=== PATIENT | male | born 1975 | race Caucasian/White ===

== ENCOUNTER 2017-05-11 23:49 | Emergency (ER) | payer SELFPAY ==
[~2017-05-11] VITALS: Ht 180.3 cm; Wt 75.3 kg
[~2017-05-11 23:49] MED LIST: IBUPROFEN800 MG PO; NAPROXEN500 MG PO; OMEPRAZOLE20 MG PO; PENICILLIN V P500 MG PO; SERTRALINE HCL100 MG PO; TRAMADOL HCL50 MG PO; TRAZODONE HCL50 MG PO; ULTRAM50 MG PO
[2017-05-13] MEDS ORDERED: ZOFRAN ODT4 MG PO (08:31)
== END 2017-05-12 00:30 | disposition left against medical advice (07) ==
LOC: ED 23:49
DX: Z53.21 Procedure and treatment not carried out due to patient leaving prior to being seen by health care provider (principal)

== ENCOUNTER 2017-05-13 08:06 | Emergency (ER) | payer SELFPAY ==
[~2017-05-13] VITALS: Ht 180.3 cm; Wt 75.3 kg
[2017-05-13] MEDS ORDERED: ZOFRAN ODT4 MG PO (08:31)
== END 2017-05-13 08:43 | disposition home or self-care (01) ==
LOC: ED 08:06
DX: K40.90 Unilateral inguinal hernia, without obstruction or gangrene, not specified as recurrent (principal); F43.10 Post-traumatic stress disorder, unspecified; F17.200 Nicotine dependence, unspecified, uncomplicated; Z88.5 Allergy status to narcotic agent; Z79.899 Other long term (current) drug therapy
CPT/HCPCS: 99283

== ENCOUNTER 2017-07-01 09:27 | Emergency (ER) | payer SELFPAY ==
[~2017-07-01] VITALS: Ht 180.3 cm; Wt 75.3 kg
[~2017-07-01 09:27] MED LIST changes: +ZOFRAN ODT4 MG PO
== END 2017-07-01 09:44 | disposition home or self-care (01) ==
LOC: ED 09:27
DX: M54.9 Dorsalgia, unspecified (principal)

== ENCOUNTER 2018-05-15 07:03 | Emergency (ER) | payer BC ==
[~2018-05-15] VITALS: Ht 180.3 cm; Wt 81.7 kg
[2018-05-15] MEDS ORDERED: PRAZOSIN HCL2 MG PO (07:11)
[2018-05-15] MEDS ORDERED: RANITIDINE HCL300 MG PO (07:12)
== END 2018-05-15 08:12 | disposition home or self-care (01) ==
LOC: ED 07:03
PROC: 0HQFXZZ Repair Right Hand Skin, External Approach (ICD-10-PCS; principal; 2018-05-15)
PROC: 0HQGXZZ Repair Left Hand Skin, External Approach (ICD-10-PCS; principal; 2018-05-15)
DX: S61.211A Laceration without foreign body of left index finger without damage to nail, initial encounter (principal); S61.210A Laceration without foreign body of right index finger without damage to nail, initial encounter; Z23 Encounter for immunization; F41.9 Anxiety disorder, unspecified; F17.200 Nicotine dependence, unspecified, uncomplicated; Z88.5 Allergy status to narcotic agent; Z79.899 Other long term (current) drug therapy; X58.XXXA Exposure to other specified factors, initial encounter
CPT/HCPCS: 12001; 90471; 90715; 99282-25

== ENCOUNTER 2018-08-04 15:28 | Emergency (ER) | payer OTHER ==
[~2018-08-04] VITALS: Ht 180.3 cm; Wt 78.0 kg
--- OUTSIDE RECORDS SUMMARY | ~2018-08-04 | XMS | Encounter Summary ---
Demographics + + + | Address | [address] | | | [place] [address] | + + + | Home Phone | | + + + | Preferred Language | Unknown | + + + | Marital Status | Unknown | + + + | Methodist Affiliation | Unknown | + + + | Race | Unknown | + + + | Ethnic Group | Unknown | + + + Author + + + | Author | [facility] | | | and Chrisana | + + + | Organization | [facility] | | | and Chrisana | + + + | Address | Unknown | + + + | Phone | Unavailable | + + + Support + + +---------+ + | Name | Relationship | Address | Phone | + + +---------+ + | Marce Jimenez | ECON | Unknown | | + + +---------+ + Care Team Providers + +------+ + | Care Software Performance Engineer Name | Role | Phone | + +------+ + | Bo Tomlin MD | PCP | | + +------+ + Encounter Details +--------+ + + + + | Date | Type | Department | Care Team | Description | +--------+ + + + + | 07/04/ | Ancillary | [facility] | Provider, | | | 2019 | Orders | [facility] | [address] | | | | | IMAGING | [address] | | | | | [phone] | [place] [address] | | +--------+ + + + + Social History + + + +--------+ + | Tobacco Use | Types | Packs/Day | Years | Date | | | | | Used | | + + + +--------+ + | Current Every Day | Cigarettes | 0.5 | 12 | Started: 2006 | | Smoker | | | | | + + + +--------+ + + +---+---+---+ | Smokeless Tobacco: | | | | | Never Used | | | | + +---+---+---+ + + +---------+ + | Alcohol Use | Drinks/We | oz/Week | Comments | | | ek | | | + + +---------+ + | No | | | | + + +---------+ + + + + | Sex Assigned at | Date Recorded | | | | + + + | Not on file | | + + + as of this encounter Plan of Treatment +--------+ + + + + | Date | Type | Specialty | Care Team | Description | +--------+ + + + + | 07/04/ | Procedure | General Surgery | | | | 2019 | Pass | | | | +--------+ + + + + | 08/08/ | Appointment | Radiology | Geovanny Oswald, | | | 2018 | | | , FACS [address] | | | | | | [place] | | | | | | [address] | | | | | | | | +--------+ + + + + | 08/08/ | Appointment | Radiology | Geovanny Oswald, | | | 2018 | | | , FACS [address] | | | | | | [place] | | | | | | [address] | | | | | | | | +--------+ + + + + as of this encounter Results US Pelvis Limited (06/07/2018 1030) + + + | Narrative | Performed At | + + + | External films for comparison only | [facility] | | | | | No results will be in the chart. | | + + + + +---------+ + + | Performing | Address | City/State/Zipcode | Phone Number | | Organization | | | | + +---------+ + + | [facility] | | | | + +---------+ + + IRENA Matute (06/07/2018934) + + + | Narrative | Performed At | + + + | External films for comparison only | [facility] | | | | | No results will be in the chart. | | + + + + +---------+ + + | Performing | Address | City/State/Zipcode | Phone Number | | Organization | | | | + +---------+ + + | [facility] | | | | + +---------+ + + in this encounter Visit Diagnoses Not on filein this encounter"
--- OUTSIDE RECORDS SUMMARY | ~2018-08-04 | XMS | Encounter Summary ---
Demographics + + + | Address | [address] | | | [place] [address] | + + + | Home Phone | | + + + | Preferred Language | Unknown | + + + | Marital Status | Unknown | + + + | Confucianist Affiliation | Unknown | + + + | Race | Unknown | + + + | Ethnic Group | Unknown | + + + Author + + + | Author | [facility] | | | and [place]ana | + + + | Organization | [facility] | | | and Chrisana [...] Team Providers + +------+ + | Care Vegetable Cook Name | Role | Phone | + +------+ + | Bo Tomlin MD | PCP | | + +------+ + Encounter Details +--------+ + + + + | Date | Type | Department | Care Team | Description | +--------+ + + + + | 07/04/ | Procedure | [facility] | | | | 2018 | Pass | [facility] | | | | | | IMAGING | | | | | | [phone] | | | +--------+ + + + + Social History + + + +--------+ + | Tobacco Use | Types | Packs/Day | Years | Date | | | | | Used | | + + + +--------+ + | Current Every Day | Cigarettes | 0.5 | 12 | Started: 2005 | | Smoker | | | | [...] | General Surgery | | | | 2018 | Pass | | | | +--------+ + + + + | 08/08/ | Appointment | Radiology | Geovanny Oswald, | | | 2018 | | | [place] | | | | | | [address] [place] | | | | | | [address] | | | | | | | | +--------+ + + + + | 08/08/ | Appointment | Radiology | Geovanny Oswald, | | | 2018 | | | [address] | | | | | | [place] | | | | | | [address] | | | | | | | | +--------+ + + + + as of this encounter Visit Diagnoses Not on filein this encounter"
--- OUTSIDE RECORDS SUMMARY | ~2018-08-04 | XMS | Clinical Summary ---
Demographics + + + | Address | [address] | | | [place] [address] | + + + | Home Phone | | + + + | Preferred Language | Unknown | + + + | Marital Status | Unknown | + + + | Holiness Affiliation | Unknown | + + + | Race | Unknown | + + + | Ethnic Group | Unknown | + + + Author + + + | Author | [facility] | | | and [place]ana | + + + | Organization | [facility] | | | and Chrisana [...] Team Providers + +------+ + | Care Automation Driver Name | Role | Phone | + +------+ + | Bo Tomlin MD | PP | | + +------+ + Allergies + + + + + + | Active Allergy | Reactions | Severity | Noted | Comments | | | | | Date | | + + + + + + | Hydrocodone | Hives | | 05/22/19 | | | | | | 19 | | + + + + + + | Oxycodone-Acetaminop | Hives | Medium | 08/12/19 | | | hen | | | 18 | | + + + + + + Current Medications + + +-------+---------+------+------+-------+ | Prescription | Sig. | Disp. | Refills | Star | End | Statu | | | | | | t | Date | s | | | | | | Date | | | + + +-------+---------+------+------+-------+ | traZODone | Take 100-200 mg by | | | 08/07 | | Activ | | (DESYREL) 100 mg | mouth nightly. | | | 11/25 | | e | | tablet | | | | 18 | | | + + +-------+---------+------+------+-------+ | omeprazole | Take 40 mg by mouth | | | | | Activ | | (PRILOSEC) 40 MG | every morning | | | | | e | | capsule | (before breakfast). | | | | | | + + +-------+---------+------+------+-------+ | melatonin 5 mg | melatonin 5 mg | | | 12/2 | | Activ | | tablet | tablet | | | 7/20 | | e | | | | | | 18 | | | + + +-------+---------+------+------+-------+ | pantoprazole | pantoprazole 40 mg | | | 12/2 | | Activ | | (PROTONIX) 40 mg | tablet,delayed | | | 7/20 | | e | | tablet | release | | | 18 | | | + + +-------+---------+------+------+-------+ | prazosin | prazosin 2 mg | | | 12/2 | | Activ | | (MINIPRESS) 2 MG | capsule | | | 7/20 | | e | | capsule | | | | 18 | | | + + +-------+---------+------+------+-------+ | raNITIdine | ranitidine 300 mg | | | 12/2 | | Activ | | (ZANTAC) 300 MG | tablet | | | 7/20 | | e | | tablet | | | | 18 | | | + + +-------+---------+------+------+-------+ Active Problems + + + | Problem | Noted Date | + + + | Right inguinal hernia | 06/14/2018 | + + + | Elevated pancreatic enzyme | 08/16/2017 | + + + + + | Overview: Last Assessment & Plan: | | Etiology not evident. | | | | Denies alcohol use. | | | | Triglycerides normal. | | | | Will refer to ultrasound of liver. | | | | Will refer for CT scan of abdomen. | + + + + + | Helicobacter pylori infection | 08/16/2017 | + + + + + | Overview: Overview: | | Antibodies to H pylori. Noted previously. | + + + + + | Methamphetamine use (HCC) | 08/16/2017 | + + + + + | Overview: Overview: | | UDS positive for methamphetamine. | + + + + + | Chronic constipation | 08/11/2017 | + + + + + | Overview: Last Assessment & Plan: Gradually increase the dose | | of abhay lax until has BM every day or every other day. | + + + + + | Generalized abdominal pain | 08/11/2017 | + + + + + | Overview: Last Assessment & Plan: gaastritis versus chronic | | constipation versus gal bladder disease. Trial of omeprazole. | | Test for cure of H pyloriLab today. If not responding will get | | ultrasound gall bladder. | | | |Test for cure of H pylori | | | |Lab today. | | | |If not responding will get ultrasound gall bladder. | + + + + + | Obstructive sleep apnea syndrome | 08/11/2017 | + + + + + | Overview: Last Assessment & Plan: Suspect sleep apnea due to | | tonsillar hypertrophy. Would like to refer cor cinsderation for | | tonsillectomy. Has no insurance | |Would like to refer cor cinsderation for tonsillectomy. Has no insurance | + + + + + | PTSD (post-traumatic stress disorder) | 08/11/2017 | + + + + + | Overview: Last Assessment & Plan: | | Will increase dose of trazodone. | + + + + + | Tobacco dependence | 08/11/2017 | + + + + + | Overview: Last Assessment & Plan: | | Quit smoking | + + + +---+ | Inguinal pain | | + +---+ | Gastroparesis | | + +---+ | Irritable bowel syndrome with constipation | | + +---+ | Gastroesophageal reflux disease without esophagitis | | + +---+ | Other insomnia | | + +---+ Encounters +--------+ + + + + | Date | Type | Specialty | Care Team | Description | +--------+ + + + + | 07/04/ | Office | | Geovanny Oswald, | Inguinal mass | | 2018 | Visit | | [place] | (Primary Dx); RUQ | | | | | | pain | +--------+ + + + + | 07/04/ | Abstract | | Provider, | Inguinal pain, | | 2018 | | | MD Momo | unspecified | | | | | | laterality; | | | | | | Gastroparesis; | | | | | | Irritable bowel | | | | | | syndrome with | | | | | | constipation; | | | | | | Gastroesophageal | | | | | | reflux disease | | | | | | without esophagitis; | | | | | | Other insomnia | +--------+ + + + + | 07/04/ | Ancillary | | Provider, | | | 2018 | Orders | | Historical, MD | | +--------+ + + + + | 07/04/ | Procedure | | | | | 2018 | Pass | | | | +--------+ + + + + | 06/27/ | Abstract | | Geovanny Oswald, | | | 2018 | | | [place] | | +--------+ + + + + | 06/22/ | Abstract | | Geovanny Oswald, | | | 2018 | | | [place] | | +--------+ + + + + | 06/07/ | Imaging | | Provider, | | | 2018 | Exam | | MD [facility]o | | +--------+ + + + + | 06/07/ | Imaging | | Provider, | | | 2018 | Exam | | MD [facility] | | +--------+ + + + + | 05/22/ | Abstract | | Provider, | | | 2018 | | | MD [facility]o | | +--------+ + + + + from Last 3 Months Immunizations + + + + | Name | Dates Previously Given | Next Due | + + + + | TDAP, (ADOL/ADULT) | 05/15/2018, 08/11/2017 | | + + + + Family History + + +------+ + | Medical History | Relation | Name | Comments | + + +------+ + | Mental illness | Brother | | | + + +------+ + | Asthma | Father | | | + + +------+ + | Emphysema | Father | | | + + +------+ + | COPD | Mother | | | + + +------+ + | Mental illness | Mother | | | + + +------+ + | Migraines | Mother | | | + + +------+ + + +------+ + + | Relation | Name | Status | Comments | + +------+ + + | Brother | | | | + +------+ + + | Father | | | COPD | | | | (Age | | | | | 70) | | + +------+ + + | Mother | | Alive | | + +------+ + + Social History + + + [...] on file | | + + + Last Filed Vital Signs + + + + | Vital Sign | Reading | Time Taken | + + + + | Blood Pressure | 107/56 | 07/04/2018 1451 PST | + + + + | Pulse | 82 | 07/04/20181450 PST | + + + + | Temperature | 36.4 C (97.5 F) | 07/04/20181450 PST | + + + + | Respiratory Rate | 18 | 07/04/20181450 PST | + + + + | Oxygen Saturation | 96% | 07/04/20181450 PST | + + + + | Inhaled Oxygen | - | - | | Concentration | | | + + + + | Weight | 86.5 kg (190 lb 11.2 | 07/04/20181450 PST | | | oz) | | + + + + | Height | 177.8 cm (5' 10") | 07/04/20181 PST | + + + + | Body Mass Index | 27.36 | 07/04/20181450 PST | + + + + Plan of Treatment +--------+ + + + + | Date | Type | Specialty | Care Team | Description | +--------+ + + + + | 07/04/ | Procedure | | | | | 2018 | Pass | | | | +--------+ + + + + | 08/08/ | Appointment | | Geovanny Oswald, | | | 2018 | | | [place] | | | | | | [place] | | | | | | [address] | | | | | | | | +--------+ + + + + | 08/08/ | Appointment | | Geovanny Oswald, | | | 2018 | | | [place] [place] | | | | | | [place] | | | | | | [address] | | | | | | | | +--------+ + + + + + + + + + | Health Maintenance | Due Date | Last Done | Comments | + + + + + | Vaccine: | | | | | Pneumococcal 19-64 | 6 | | | | (PPSV23 only) Medium | | | | | Risk (1 of - | | | | | PPSV23) | | | | + + + + + | Vaccine: Influenza | | | | | (#1) | 8 | | | + + + + + | Vaccine: | | 05/15/2018, 08/11/2017 | | | Dtap/Tdap/Td (3 - | 9 | | | | Td) | | | | + + + + + Procedures + +--------+ + + + | Procedure Name | Priori | Date/Time | Associated Diagnosis | Comments | | | ty | | | | + +--------+ + + + | BASIC METABOLIC | Routin | 07/04/2018 | Inguinal mass RUQ | Results for this | | PANEL | e | 1547 PST | pain | procedure are in the | | | | | | results section. | + +--------+ + + + | US PELVIS LIMITED | Routin | 06/07/2018 | | Results for this | | | e | 1030 PST | | procedure are in the | | | | | | results section. | + +--------+ + + + | FL UGI AND MOISES | Routin | 06/07/2018 | | Results for this | | | e | 0935 PST | | procedure are in the | | | | | | results section. | + +--------+ + + + | IMAGING REPORT - | | 06/07/2018 | | Results for this | | EXTERNAL SCAN | | 0000 PST | | procedure are in the | | | | | | results section. | + +--------+ + + + from Last 3 Months Results Basic Metabolic Panel (07/04/2018 1547) + + + + + | Component | Value | Ref Range | Performed At | + + + + + | Na | 136 | 136 - 149 mmol/L | [facility] | | [facility] - | | | | | [facility]ORY | + + + + + | K | 4.0 | 3.5 - 5.1 mmol/L | [facility] - | | | | | LAB[facility]ATORY | + + + + + | Cl | 106 | 98 - 109 mmol/L | [facility] | | | | | [facility] | + + + + + | CO2 | 23 (L) | 24 - 31 mmol/L | [facility] - | | | | | LAB[facility]ORY | + + + + + | Anion Gap | 7 | 3 - 16 mmol/L | [facility] - | | | | | [facility]ORY | + + + + + | Glucose | 84 | 70 - 109 mg/dL | [facility] - | | | | | [facility] | + + + + + | BUN | 11 | 7 - 18 mg/dL | [facility] - | | | | | [facility] | + + + + + | Creatinine | 0.97 | 0.60 - 1.30 mg/dL | [facility] | | | | [facility] | | | | | [facility] - | | | | | LABORATORY | + + + + + | eGFR if not | >60Comment: GLOMERULAR | >=60 mL/min/1.73m2 | [facility] | | [place] | FILTRATION | | [facility] | | | RATE,ESTIMATED mL/min | | CENTER - | | | /1.64u8Eysv than 60 | | LABORATORY | | | Chronic kidney | | | | | disease,if found over a | | | | | 3-month period.Less than | | | | | 15 Kidney | | | | | failureFor | | | | | Americans,multiply the | | | | | calculated GFR by 1.21. | | | | | | | | + + + + + | Ca | 8.5 | 8.3 - 10.5 mg/dL | [facility] | | | | | [facility] | | | | | [facility] - | | | | | LABORATORY | + + + + + | BUN/Creatinine Ratio | 11.3 | | [facility] | | | | | [facility] | | | | | CENTER - | | | | | LABORATORY | + + + + + + + | Specimen | + + | Blood | + + + + + + + | Performing | Address | City/State/Zipcode | Phone Number | | Organization | | | | + + + + + | [facility] | [address] | [place], [place] | [phone] | | [facility] | | [address] | | | - LABORATORY | | | | + + + + + US Pelvis Limited (06/07/2018 1030) + + [...] | + +---------+ + + IRENA Matute (06/07/2018 0935) + + + | Narrative | Performed [...] | | | + +---------+ + + IMAGING REPORT - EXTERNAL SCAN (06/07/2018) + + + | Narrative | Performed At | + + + | Ordered by an | | | unspecified provider. | | + + + from Last 3 Months Insurance +-------+--------+ +------+ + + | Payer | Benefi | Subscriber | Type | Phone | Address | | | t Plan | ID | | | | | | / | | | | | | | Group | | | | | +-------+--------+ +------+ + + | MODA | MODA | [id number] | PPO | [phone] [address] [address] | | | [place] | | [phone] | [place] [address] | | | [place] | | | | | | | [place]NER | | | | | | | STONE | | | | | | | EPO | | | | | +-------+--------+ +------+ + + + +--------+ +--------+ + + | Guarantor Name | Accoun | Relation to | Date | Phone | Billing Address | | | t Type | Patient | of | | | | | | | | | | + +--------+ +--------+ + + | HILLARY JIMENEZ | Person | Self [birth year] | Home: | [address] | | | al/Fam | | 1975 | [phone] | [place] [address] | | | john | | | [phone] | | + +--------+ +--------+ + +
--- OUTSIDE RECORDS SUMMARY | ~2018-08-04 | XMS | Clinical Summary ---
Demographics + + + | Address | [address] | | | [place] [address] | + + + | Home Phone | | + + + | Preferred Language | Unknown | + + + | Marital Status | Unknown | + + + | Christian Affiliation | Unknown | + + + | Race | Unknown | + + + | Ethnic Group | Unknown | + + + Author + + + | Author | [facility] | | | and [place]ana | + + + | Organization | [facility] | | | and Chrisana [...] Team Providers + +------+ + | Care Pin Drafting Machine Tender Name | Role | Phone | + [...] [place] | | | | | | [address] | | | | | | | | +--------+ + + + + | 08/08/ | Appointment | | Geovanny Oswald, | | | 2018 | | | [place] | | | | | | [place] | | | | | | [address] | | | | | | | [...] [facility] | | | | | [facility] | | | | | CENTER - | | | | | LABORATORY | + + + + + | eGFR if not | >60Comment: GLOMERULAR | >=60 mL/min/1.73m2 | [facility] | | [place] | FILTRATION | | [facility] | | | RATE,ESTIMATED mL/min | | CENTER - | | | /1.28u2Slcb than 60 | | LABORATORY | | [...] [facility] | | | | | [facility] | | | | | CENTER - | | | | | LABORATORY | + + + + + | BUN/Creatinine Ratio | 11.3 | | [facility] | | | | | [facility] | | | | | CENTER - | | | | | LABORATORY | + + + + + + + | Specimen | + + | Blood | + + + + + + + | Performing | Address | City/State/Zipcode | Phone Number | | Organization | | | | + + + + + | [facility] | [address] | [place], [place] | [phone] | | [facility] | | [address] | | | - LABORATORY | | [...] + + | MODA | MODA | [id number] | PPO | [phone] [address] [address] | | | [place] | | | [phone] | [place] [address] | | | [place] | | | [...] | 1975 | [phone] | [place] [address] | | | john | | | [phone] | | + +--------+ +--------+ + +
--- OUTSIDE RECORDS SUMMARY | ~2018-08-04 | XMS | Encounter Summary ---
Demographics + + + | Address | [address] | | | [place] [address] | + + + | Home Phone | | + + + | Preferred Language | Unknown | + + + | Marital Status | Unknown | + + + | Temple Affiliation | Unknown | + + + | Race | Unknown | + + + | Ethnic Group | Unknown | + + + Author + + + | Author | [facility] | | | and [place] | + + + | Organization | [facility] | | | and Chrisana [...] Team Providers + +------+ + | Care Train Operations Supervisor Name | Role | Phone | + [...] [address] | | | | | [phone] | [place] [address] | | +--------+ + + + + [...] [place] | | | | | | [address] | | | | | | | | +--------+ + + + + | 08/08/ | Appointment | Radiology | Geovanny Oswald, | | | 2018 | | | , FACS [address] | | | | | | [place] | | | | | | [address] | | | | | | | [...]
--- OUTSIDE RECORDS SUMMARY | ~2018-08-04 | XMS | Encounter Summary ---
Demographics + + + | Address | [address] | | | [place] [address] | + + + | Home Phone | | + + + | Preferred Language | Unknown | + + + | Marital Status | Unknown | + + + | Jew Affiliation | Unknown | + + + | Race | Unknown | + + + | Ethnic Group | Unknown | + + + Author + + + | Author | [facility] | | | and [place] | + + + | Organization | [facility] | | | and [place] [...] Team Providers + +------+ + | Care Fireman Helper Name | Role | Phone | + +------+ + | Bo Tomlin MD | PCP | | + +------+ + Encounter Details +--------+ + + + + | Date | Type | Department | Care Team | Description | +--------+ + + + + | 06/22/ | Abstract | [facility] | Geovanny Oswald, | | | 2018 | | SURGERY [address] | [place] | | | | | [place], [place] | [place], [place] | | | | | [address] | [address] | | | | | [phone] | | | +--------+ + + + [...] + + + as of this encounter Progress Notes Charley Cordero, [facility] - 06/22/2018 1658 PSTPelvic Ultrasound 06/07/2018 at [facility] FINDINGS: Scanning over the palpable lump as directed by the patient reveals a hernia passing through a 9 x 8 mm defect in the abdominal wall. This contains fluid and fat, and measures 32 x 19x 25 mm. With Valsalva, some bowel herniates. The hernia is lateral to the inguinal canal, and medial to the femoral vessels. IMPRESSION: Femoral herniain this encounter Plan of Treatment +--------+ + [...] [place] | | | | | | [address] | | | | | | | | +--------+ + + + + | 08/08/ | Appointment | Radiology | Geovanny Oswald, | | | 2018 | | | [address] | | | | | | [place] | | | | | | [address] | | | | | | | | +--------+ + + + + as of this encounter Visit Diagnoses Not on filein this encounter"
--- OUTSIDE RECORDS SUMMARY | ~2018-08-04 | XMS | Encounter Summary ---
Demographics + + + | Address | [address] | | | [place] [address] | + + + | Home Phone | | + + + | Preferred Language | Unknown | + + + | Marital Status | Unknown | + + + | Gnosticist Affiliation | Unknown | + + + | Race | Unknown | + + + | Ethnic Group | Unknown | + + + Author + + + | Author | [facility] | | | and Chrisana | + + + | Organization | [facility] | | | and Chrisana | [...] Team Providers + +------+ + | Care Clicker Operator Name | Role | Phone | + +------+ + | Bo Tomlin MD | PCP | | + +------+ + Reason for Referral Diagnostic/Screening (Routine) + +--------+ + + + + | Status | Reason | Specialty | Diagnoses / | Referred By | Referred To | | | | | Procedures | Contact | Contact | + +--------+ + + + + | Authorized | | Radiology | Diagnoses | [place], | [address] | | | | | Inguinal | Geovanny W, | [address] | | | | | mass | [place] | [place], | | | | | Procedures | [address] | [place] [address] | | | | | CT Pelvis w | [place] | Phone: | | | | | Contrast | [place] | [phone] | | | | | | [address] | Fax: | | | | | | Phone: | [phone] | | | | | | [phone] | | | | | | | Fax: | | | | | | | [phone] | | + +--------+ + + + + Reason for Visit + + + | Reason | Comments | + + + | New Patient | Right inguinal hernia | + + + Evaluate & Treat (Routine) +--------+--------+ + + + + | Status | Reason | Specialty | Diagnoses / | Referred By | Referred To | | | | | Procedures | Contact | Contact | +--------+--------+ + + + + | Closed | | General | Diagnoses | Nabor, | Margret, | | | | Surgery | Right | Bo Patel MD | Geovanny Solano MD, | | | | | inguinal | [address] | [address] | | | | | hernia | [address] | [address] | | | | | Procedures | [place], | [place], | | | | | [place] OFFICE | [place] [address] | [address] | | | | | OUTPATIENT | Phone: | Phone: | | | | | NEW 45 | [phone] | [phone] | | | | | MINUTES | Fax: | Fax: | | | | | | [phone] | [phone] | +--------+--------+ + + + + Encounter Details +--------+---------+ + + + | Date | Type | Department | Care Team | Description | +--------+---------+ + + + | 07/04/ | Office | [facility] | Geovanny Oswald, | Inguinal mass | | 2019 | Visit | SURGERY [address] | , [address] | (Primary Dx); RUQ | | | | ST [place], [place] | [place], [place] | pain | | | | [address] | [address] | | | | | [phone] | | | +--------+---------+ + + + Social History + + [...] + + + as of this encounter Last Filed Vital Signs + + + [...] Height | 177.8 cm (5' 10") | 07/04/2018 1451 PST | + + + + | Body Mass Index | 27.36 | 07/04/2018 1451 PST | + + + + in this encounter Progress Notes Geovanny Oswald MD, FACS - 07/04/2018 1430 PSTFormatting of this note may be different f rom the original. Consult Note Referring Provider: Bo Tomlin MD HISTORY OF PRESENT ILLNESS Ty Jimenez is a 42 y.o. male patient of Bo Tomlin MD here today for evaluati on of Right inguinal hernia. Physician notes: Ole is seen in the office today for evaluation. He is a 42-year-old gentleman who has had issues with chronic anxiety and depression and drug use. Currently, he is only using marij uana daily. He has a very supportive who is present with him today. Ashutosh has a couple of issues that warrant investigation. He has chronic reflux. He also has chronic right upper quadrant pain. He has frequent emesis. He was beginning in evaluation through the GI department. He then stopped because of lack of insurance. He is now schedu led to see them again in the next couple of weeks. Previously, an ultrasound of the right u pper quadrant was ordered. He did not do it because of coverage issues. He also has noted a right groin tender lump over the past couple of years. He is worse wit h standing or lifting. He has not had obstructive symptoms. He has not had previous hernia s or hernia repairs. REI Score: REI Risk Score 07/04/2018 Risk for Obstructive Sleep Apnea Suspected Risk for REI 3 Opioid Risk Tool (ORT): Total Score 12 (07/04/18 1446) Interpretation of Total Score: 0 to 3 = Low risk: 6% chance of developing problematic behav iors, 4 to 7 = Moderate risk: 28% chance of developing problematic behaviors, 8 or more = Hi gh risk: 90% chance of developing problematic behaviors. Bo Tomlin MD's notes were reviewed in clinic today. PAST MEDICAL HISTORY Past Medical History: Diagnosis Date Anxiety Chronic constipation 08/11/2017 Last Assessment & Plan: Gradually increase the dose of abhay lax until has BM every day or every other day. Constipation Depression Diarrhea Dyspepsia Elevated pancreatic enzyme 08/16/2017 Last Assessment & Plan: Etiology not evident. Denies alcohol use. Triglycerides normal . Will refer to ultrasound of liver. Will refer for CT scan of abdomen. Gastroesophageal reflux disease without esophagitis Gastroparesis Generalized abdominal pain 08/11/2017 Last Assessment & Plan: gaastritis versus chronic constipation versus gal bladder disease . Trial of omeprazole. Test for cure of H pylori Lab today. If not responding will ge t ultrasound gall bladder. GERD (gastroesophageal reflux disease) Helicobacter pylori infection 08/16/2017 Overview: Antibodies to H pylori. Noted previously. IBS (irritable bowel syndrome) Inguinal pain Insomnia Irritable bowel syndrome with constipation Methamphetamine use (HCC) 08/16/2017 Overview: UDS positive for methamphetamine. Obstructive sleep apnea syndrome 08/11/2017 Last Assessment & Plan: Suspect sleep apnea due to tonsillar hypertrophy. [facility]. Has no insurance Other insomnia PTSD (post-traumatic stress disorder) 08/11/2017 Last Assessment & Plan: Will increase dose of trazodone. Sleep disturbance Tobacco dependence 08/11/2017 Last Assessment & Plan: Quit smoking Vomiting History reviewed. No pertinent surgical history. Allergies: Allergies Allergen Reactions Oxycodone-Acetaminophen Hives Hydrocodone Hives Medications: Outpatient Encounter Prescriptions as of 07/04/2018 Medication Sig Dispense Refill [DISCONTINUED] cephalexin (KEFLEX) 500 mg capsule Take 1,000 mg by mouth 2 times daily. 0 melatonin 5 mg tablet melatonin 5 mg tablet omeprazole (PRILOSEC) 40 MG capsule Take 40 mg by mouth every morning (before breakfast ). pantoprazole (PROTONIX) 40 mg tablet pantoprazole 40 mg tablet,delayed release [DISCONTINUED] polyethylene glycol (MIRALAX) powder Take 17 g by mouth Daily. prazosin (MINIPRESS) 2 MG capsule prazosin 2 mg capsule raNITIdine (ZANTAC) 300 MG tablet ranitidine 300 mg tablet traZODone (DESYREL) 100 mg tablet Take 100-200 mg by mouth nightly. No facility-administered encounter medications on file as of 07/04/2018. Family History Problem Relation Age of Onset COPD Mother Mental illness Mother Migraines Mother Emphysema Father Asthma Father Mental illness Brother Social History Social History Marital status: N/A Spouse name: N/A Number of children: N/A Years of education: N/A Social History Main Topics Smoking status: Current Every Day Smoker Packs/day: 0.50 Years: 12.00 Types: Cigarettes Start date: 2005 Smokeless tobacco: Never Used Alcohol use No Drug use: Yes Types: Marijuana Comment: history of meth use Sexual activity: Not Asked Other Topics Concern None Social History Narrative None REVIEW OF SYSTEMS: Unmarked boxes mean negative response. General: [x]Weight loss/gain (over 10 lbs) [x]Fever/chills []Night sweats Hematologic: []Bleeding/brusing tendencies []Blood transfusion []Anemia Heent: []Vision loss []Hearing loss []Sinus problems/nose bleeds []Hoarseness Respiratory: []Wheezing []Shortness of breath []Cough []Spitting up blood []On oxygen []Use CPAP machine Cardiac: []Chest pain []Palpitations/heart racing []Swelling of ankles/hands []Unusual shortness of breath []Difficulty sleeping flat Gastrointestinal: [x]Nausea/vomiting []Difficulty swallowing [x]Heartburn [x]Loss of appetite [x]Abdominal pain []Sto mach Ulcers [x]Diarrhea [x]Constipation []Black or bloody stools Vascular: []Strokes/TIAs []Fainting []Difficulty with speech [x]Leg cramps []Pain in feet/legs at rest []Foot ulcers/s ores []Varicose veins []Phlebitis/blood clots Musculoskeletal: []Joint stiffness/swelling []Joint pain []Back pain []Arthritis []Gout Urologic: []Blood in urine [x]Frequent urination at night []Burning/painful urination []Kidney stones []Difficult urination []Sexual difficulties Neuro/Psychiatric: [x]Headaches []Seizures [x]Depression [x]Anxiety attacks []Memory loss or confusion PHYSICAL EXAM BP 107/56 | Pulse 82 | Temp 36.4 C (97.5 F) (Temporal) | Resp 18 | Ht 1.778 m (5' 1 0") | Wt 86.5 kg (190 lb 11.2 oz) | SpO2 96% | BMI 27.36 kg/m General Appearance: Alert, cooperative, no distress, appears stated age Skin: Warm and dry Head: Normocephalic, without obvious abnormality, atraumatic Eyes: PERRL, conjunctiva/corneas clear, EOM's intact Ears: Adequate hearing bilateral Nose: Nares normal, septum midline Neck: Symmetric, no adenopathy, no neck bruits Lymph nodes Cervical and supraclavicular nodes normal Lungs: Breath sounds are clear to auscultation bilaterally, no wheezes, crackles Heart: Regular rate and rhythm, S1, S2 normal, no murmur Abdomen: Soft, non-tender , nondistended with positive bowel sounds. No masses are noted . Normal external genitalia. No evidence of left inguinal hernia. Possible right inguinal lymphadenopathy and or right femoral/inguinal hernia. Physical exa m does not clearly delineate this Extremities: Extremities normal, atraumatic, no cyanosis, clubbing, or edema Radial pulses 2+ bilateral Neurologic: Alert and oriented x3, equal clerical support specialist strenght and plantar flexion, Gait normal Assessment /Plan Ty was seen today for new patient. Diagnoses and all orders for this visit: Inguinal mass - CT Pelvis w Contrast; Future - Basic Metabolic Panel; Future RUQ pain - US Abdomen Limited; Future - Basic Metabolic Panel; Future Ole has 2 issues that I think warrant additional evaluation from a general surgical standp oint. This are complicated by his multiple other chronic issues and concerns. I do think sixto damon would benefit from an ultrasound to evaluate for cholecystitis and cholelithiasis given hi s chronic right upper quadrant symptoms. He also needs to continue his workup for reflux wi th GI. I also would like to obtain a CT of the pelvis to better delineate his inguinal anatomy and pathology. This has been ordered. Instructions and precautions have been given. If he has acute symp toms, he needs to present to the emergency department for evaluation. He agrees to do so. Geovanny Oswald MD, FACS CC PCP: Bo Tomlin MD Portions of this chart may have been created with [employer] voice recognition software. Occasi onal wrong-word or sound-alike substitutions may have occurred due to the inherent chowdary itations of voice recognition software. Please read the chart carefully and recognize, using context, where these substitutions have occurred.in this encounter Plan of Treatment +--------+ + [...] | | 2018 | | | , [place] [address] [place] [address] | | | | | | [place], [place] | | | | | | [id number] | | | | | | | | +--------+ + + + + | 08/08/ | Appointment | Radiology | Geovanny Oswald, | | | 2018 | | | [address] | | | | | | [place] | | | | | | [address] | | | | | | | | +--------+ + + + + + +--------+ + + | Name | Priori | Associated Diagnoses | Order Schedule | | | ty | | | + +--------+ + + | US Abdomen Limited | Routin | RUQ pain | Expected: | | | e | | 07/04/2018, Expires: | | | | | 07/04/2019 | + +--------+ + + | CT Pelvis w Contrast | Routin | Inguinal mass | Expected: | | | e | | 07/04/2018, Expires: | | | | | 07/04/2019 | + +--------+ + + as of this encounter Procedures + +--------+ + + + | [...] section. | + +--------+ + + + in this encounter Results Basic Metabolic Panel (07/04/2018 1547) + [...] [facility] | | | | [facility] | | | | | CENTER - | | | | | LABORATORY | + + + + + | eGFR if not | >60Comment: GLOMERULAR | >=60 mL/min/1.73m2 | [facility] | | CHADIAN | FILTRATION | | [facility] | | | RATE,ESTIMATED mL/min | | CENTER - | | | /1.48o7Bmbm than 60 | | LABORATORY | | [...] [facility] | | | | | [facility] | | | | | CENTER - | | | | | LABORATORY | + + + + + | BUN/Creatinine Ratio | 11.3 | | [facility] | | | | | [facility] | | | | | CENTER - | | | | | LABORATORY | + + + + + + + | Specimen | + + | Blood | + + + + + + + | Performing | Address | City/State/Zipcode | Phone Number | | Organization | | | | + + + + + | [facility] | [address] | [place] | [phone] | | [facility] | | [address] | | | - LABORATORY | | | | + + + + + IMAGING REPORT - EXTERNAL SCAN (06/07/2018) + + + | Narrative | Performed At | + + + | Ordered by an | | | unspecified provider. | | + + + in this encounter Visit Diagnoses + + | Diagnosis | + + | Inguinal mass - Primary | + + | Abdominal or pelvic swelling, mass or lump, unspecified site | + + | RUQ pain | + + | Abdominal pain, right upper quadrant | + +
--- OUTSIDE RECORDS SUMMARY | ~2018-08-04 | XMS | Encounter Summary ---
Demographics + + + | Address | [address] | | | [place] [address] | + + + | Home Phone | | + + + | Preferred Language | Unknown | + + + | Marital Status | Unknown | + + + | Cheondoism Affiliation | Unknown | + + + | Race | Unknown | + + + | Ethnic Group | Unknown | + + + Author + + + | Author | [facility] | | | and [place] | + + + | Organization | [facility] | | | and Chrisana [...] Team Providers + +------+ + | Care Corporate Officer Name | Role | Phone | + +------+ + | Bo Tomlin MD | PCP | | + +------+ + Encounter Details +--------+ + + + + | Date | Type | Department | Care Team | Description | +--------+ + + + + | 06/07/ | Imaging | [facility] | Samuel, | | | 2019 | Exam | [facility] | MD [address] | | | | | IMAGING | [place] | | | | | [phone] | [place] [address] | | +--------+ + + + + [...] | | | 2018 | | | MD, FACS [address] | | | | | | [place] | | | | | | [address] | | | | | | | | +--------+ + + + + | 08/08/ | Appointment | Radiology | Geovanny Oswald, | | | 2018 | | | MD, FACS [address] | | | | | | [place] | | | | | | [address] | | | | | | | | +--------+ + + + + as of this encounter Procedures + +--------+ + + + | Procedure Name | Priori | Date/Time | Associated Diagnosis | Comments | | | ty | | | | + +--------+ + + + | IRENA LEONARD AND MOISES | Routin | 06/07/2018 | | Results for this | | | e | 0935 PST | | procedure are in the | | | | | | results section. | + +--------+ + + + in this encounter Results IRENA WENHeather and MOISES (06/07/201835) + + + | Narrative | Performed [...]
--- OUTSIDE RECORDS SUMMARY | ~2018-08-04 | XMS | Encounter Summary ---
Demographics + + + | Address | [address] | | | [place] [address] | + + + | Home Phone | | + + + | Preferred Language | Unknown | + + + | Marital Status | Unknown | + + + | Mandaeism Affiliation | Unknown | + + + | Race | Unknown | + + + | Ethnic Group | Unknown | + + + Author + + + | Author | [facility] | | | and [place] | + + + | Organization | [facility] | | | and [...] Team Providers + +------+ + | Care Grade Checker Name | Role | Phone | + +------+ + | Bo Tomlin MD | PCP | | + +------+ + Encounter Details +--------+ + + + + | Date | Type | Department | Care Team | Description | +--------+ + + + + | 06/27/ | Abstract | [facility] | Geovanny Oswald, | | | 2018 | | SURGERY [address] | [place] | | | | | [place], [place] | [place], [place] | | | | | [address] | [address] | | | | | [phone] | | | +--------+ + + + [...] of this encounter Progress Notes Charley Cordero, [facility] - 06/27/2018 1625 PSTPelvic Ultrasound 06/07/2018 at [facility] FINDINGS: Scanning over the palpable lump as directed by the patient reveals a hernia passing through a 9 x 8 mm defect in the abdominal wall. This contains fluid and fat, and measures 32 x 19x 25 mm. With Valsalva, some bowel herniates. The hernia is lateral to the inguinal canal, and medial to the femoral vessels. IMPRESSION: Femoral hernia UPPER GI ON 06/07/2018 at [facility] FINDINGS: An abdominal film demonstrates a normal bowel gas pattern. No soft tissue masses, organomeg paulette, or calcifications of concern are seen. There is mild degenerative changes of the lumbar spine. A standard double contrast upper GI was performed. The esophagus appears normal, with mikel l caliber and no evidence of erosion, stricture, or diverticulum. A hiatal hernia is not present. Massive gastroesophageal reflux occurred with Valsalva maneuver. The stomach and duodenum appear normal with normal fold thickness and no evidence of ulcer disease. IMPRESSION: Massive reflux. Otherwise normal examination. in this encounter Plan of Treatment +--------+ + [...] [place] | | | | | | [address] | | | | | | | | +--------+ + + + + | 08/08/ | Appointment | Radiology | Geovanny Oswald, | | | 2018 | | | [address] | | | | | | [place] | | | | | | [address] | | | | | | | | +--------+ + + + + as of this encounter Visit Diagnoses Not on filein this encounter"
--- OUTSIDE RECORDS SUMMARY | ~2018-08-04 | XMS | Encounter Summary ---
Demographics + + + | Address | [address] | | | [place] [address] | + + + | Home Phone | | + + + | Preferred Language | Unknown | + + + | Marital Status | Unknown | + + + | Muslim Affiliation | Unknown | + + + | Race | Unknown | + + + | Ethnic Group | Unknown | + + + Author + + + | Author | and [facility] | | | and [place] | + + + | Organization | [facility] | | | and [place] [...] Team Providers + +------+ + | Care Director Personal Name | Role | Phone | + [...] [place] | | | | | [phone] | [place] [address] | | +--------+ + + + + [...] [place] | | | | | | [address] | | | | | | | | +--------+ + + + + | 08/08/ | Appointment | Radiology | Geovanny Oswald, | | | 2018 | | | MD, FACS [address] | | | | | | [place] | | | | | | [address] | | | | | | | [...] + + + in this encounter Results US Pelvis Limited (06/07/2018 [...]
--- OUTSIDE RECORDS SUMMARY | ~2018-08-04 | XMS | Encounter Summary ---
Demographics + + + | Address | [address] | | | [place] [address] | + + + | Home Phone | | + + + | Preferred Language | Unknown | + + + | Marital Status | Unknown | + + + | Caodaism Affiliation | Unknown | + + + | Race | Unknown | + + + | Ethnic Group | Unknown | + + + Author + + + | Author | [facility] | | | and [place] | + + + | Organization | [facility] | | | and [place] | [...] Team Providers + +------+ + | Care Avionics Test Technician Name | Role | Phone | + +------+ + | Bo Tomlin MD | PCP | | + +------+ + Encounter Details +--------+ + + + + | Date | Type | Department | Care Team | Description | +--------+ + + + + | 05/22/ | Abstract | [facility] | Samuel, | | | 2018 | | GASTROENTEROLOGY | [address] | | | | | [address] [facility] [address] [address] | [place] | | | | | [address] [place] | [place] [address] | | | | | [address] | | | | | | [phone] | | | +--------+ + + + [...] [place] | | | | | | [address] | | | | | | | | +--------+ + + + + | 08/08/ | Appointment | Radiology | Geovanny Oswald, | | | 2018 | | | [address] | | | | | | [place] | | | | | | [address] | | | | | | | | +--------+ + + + + as of this encounter Visit Diagnoses Not on filein this encounter"
--- OUTSIDE RECORDS SUMMARY | ~2018-08-04 | XMS | Encounter Summary ---
Demographics + + + | Address | [address] | | | [place] [address] | + + + | Home Phone | | + + + | Preferred Language | Unknown | + + + | Marital Status | Unknown | + + + | Yarsani Affiliation | Unknown | + + + | Race | Unknown | + + + | Ethnic Group | Unknown | + + + Author + + + | Author | [facility] | | | and [place] | + + + | Organization | [facility] | | | and [place] [...] Team Providers + +------+ + | Care Nurses Supervisor Name | Role | Phone | [...] [place] | | | | | [phone] | [place] [address] | | +--------+ + + + + [...] [place] | | | | | | [address] | | | | | | | | +--------+ + + + + | 08/08/ | Appointment | Radiology | Geovanny Oswald, | | | 2018 | | | MD, FACS [address] | | | | | | [place] | | | | | | [address] | | | | | | | [...]
--- OUTSIDE RECORDS SUMMARY | ~2018-08-04 | XMS | Encounter Summary ---
Demographics + + + | Address | [address] | | | [place] [address] | + + + | Home Phone | | + + + | Preferred Language | Unknown | + + + | Marital Status | Unknown | + + + | Restoration Affiliation | Unknown | + + + | Race | Unknown | + + + | Ethnic Group | Unknown | + + + Author + + + | Author | [facility] | | | and [place] | + + + | Organization | [facility] | | | and [place] [...] Team Providers + +------+ + | Care Floriculture Teacher Name | Role | Phone | + +------+ + | Bo Tomlin MD | PCP | | + +------+ + Encounter Details +--------+ + + + + | Date | Type | Department | Care Team | Description | +--------+ + + + + | 07/04/ | Abstract | [facility] | Provider, | Inguinal pain, | | 2019 | | SURGERY [address] | [address] | unspecified | | | | [place], [place] | [place] | laterality; | | | | [address] | [place] [address] | Gastroparesis; | | | | [phone] | | Irritable bowel | | | | | | syndrome with | | | | | | constipation; | | | | | | Gastroesophageal | | | | | | reflux disease | | | | | | without esophagitis; | | | | | | Other insomnia | +--------+ + + + + Social [...] [place] | | | | | | [address] | | | | | | | | +--------+ + + + + | 08/08/ | Appointment | Radiology | Geovanny Oswald, | | | 2018 | | | [address] | | | | | | [place] | | | | | | [address] | | | | | | | | +--------+ + + + + as of this encounter Visit Diagnoses + + | Diagnosis | + + | Inguinal pain, unspecified laterality | + + | Gastroparesis | + + | Irritable bowel syndrome with constipation | + + | Irritable bowel syndrome | + + | Gastroesophageal reflux disease without esophagitis | + + | Esophageal reflux | + + | Other insomnia | + +"
--- OUTSIDE RECORDS SUMMARY | ~2018-08-04 | XMS | Encounter Summary ---
Demographics + + + | Address | [address] | | | [place] [address] | + + + | Home Phone | | + + + | Preferred Language | Unknown | + + + | Marital Status | Unknown | + + + | Jehovah'S Witness Affiliation | Unknown | + + + | Race | Unknown | + + + | Ethnic Group | Unknown | + + + Author + + + | Author | [facility] | | | and Chrisana | + + + | Organization | [facility] | | | and [...] Team Providers + +------+ + | Care Popcorn Candy Maker Name | Role | Phone | + [...] | Inguinal | Geovanny W, | [place] | | | | | mass | [place] | [place], | | | | | Procedures | [address] | [place] [address] | | | | | CT Pelvis w | [place] | Phone: | | | | | Contrast | [place] | [phone] | | | | | | [address] | Fax: | | | | | | Phone: | [phone] | | | | | | [phone] | | | | | | | Fax: | | | | | | | [phone] | | + +--------+ + + + [...] | | | | | Procedures | [place], | [place], | | | | | [place] OFFICE | [place] [address] | [address] | | | | | OUTPATIENT | Phone: | Phone: | | | | | NEW 45 | [phone] | [phone] | | | | | MINUTES | Fax: | Fax: | | | | | | [phone] | [phone] | +--------+--------+ + + + + Encounter Details +--------+---------+ + + + | Date | Type | Department | Care Team | Description | +--------+---------+ + + + | 07/04/ | Office | [facility] | Geovanny Oswald, | Inguinal mass | | 2019 | Visit | SURGERY [address] | , FACS [address] | (Primary Dx); RUQ | | | | [place], [place] | [place], [place] | pain | | | | [address] | [address] | | | | | [phone] | | | +--------+---------+ + + + [...] Bo Tomlin MD HISTORY OF PRESENT ILLNESS yT Jimenez is a 42 y.o. male patient of oB Tomlin MD here today for evaluati on [...] to tonsillar hypertrophy. Would like to [facility] for tonsillectomy. Has no insurance Other insomnia [...] bilateral Neurologic: Alert and oriented x3, equal boots and shoes supervisor strenght and plantar flexion, Gait normal Assessment [...] this chart may have been created with [employer] voice recognition software. Occasi onal wrong-word or [...] | 2018 | | | , [place] [address] [place] [address] | | | | | | [place], [place] | | | | | | [id number] | | | | | | | | +--------+ + + + + | 08/08/ | Appointment | Radiology | Geovanny Oswald, | | | 2018 | | | [place] | | | | | | [place] | | | | | | [address] | | | | | | | [...] [facility] | | | | [facility] | | | | | CENTER - | | | | | LABORATORY | + + + + + | eGFR if not | >60Comment: GLOMERULAR | >=60 mL/min/1.73m2 | [facility] | | SAMOAN | FILTRATION | | [facility] | | | RATE,ESTIMATED mL/min | | CENTER - | | | /1.46e0Cflj than 60 | | LABORATORY | | [...] [facility] | | | | | [facility] | | | | | CENTER - | | | | | LABORATORY | + + + + + | BUN/Creatinine Ratio | 11.3 | | [facility] | | | | | [facility] | | | | | CENTER [...] [address] | [place] | [phone] | | [facility] | | [address] | | | - LABORATORY | | [...]
--- OUTSIDE RECORDS SUMMARY | ~2018-08-04 | XMS | Encounter Summary ---
Demographics + + + | Address | [address] | | | [place] [address] | + + + | Home Phone | | + + + | Preferred Language | Unknown | + + + | Marital Status | Unknown | + + + | Rastafari Affiliation | Unknown | + + + | Race | Unknown | + + + | Ethnic Group | Unknown | + + + Author + + + | Author | [facility] | | | and Chrisana | + + + | Organization | [facility] | | | and Chrisana [...] Team Providers + +------+ + | Care Auto Bench Mechanic Name | Role | Phone | + [...] IMAGING | | | | | | [phone] | | | +--------+ + + + [...] [place] | | | | | | [address] | | | | | | | | +--------+ + + + + | 08/08/ | Appointment | Radiology | Geovanny Oswald, | | | 2018 | | | [place] | | | | | | [place] | | | | | | [address] | | | | | | | | +--------+ + + + + as of this encounter Visit Diagnoses Not on filein this encounter"
--- OUTSIDE RECORDS SUMMARY | ~2018-08-04 | XMS | Encounter Summary ---
Demographics + + + | Address | [address] | | | [place] [address] | + + + | Home Phone | | + + + | Preferred Language | Unknown | + + + | Marital Status | Unknown | + + + | Uatsdin Affiliation | Unknown | + + + | Race | Unknown | + + + | Ethnic Group | Unknown | + + + Author + + + | Author | [facility] | | | and Chrisana | + + + | Organization | [facility] | | | and Chrisana [...] Team Providers + +------+ + | Care Learning And Development Assistant Name | Role | Phone | + [...] | | | | [address] [facility] | [place] | | | | | [address] | [place] [address] | | | | | [address] | | | | | | [phone] | | | +--------+ + + + [...] [place] | | | | | | [address] | | | | | | | | +--------+ + + + + | 08/08/ | Appointment | Radiology | Geovanny Oswald, | | | 2018 | | | [place] | | | | | | [place] | | | | | | [address] | | | | | | | | +--------+ + + + + as of this encounter Visit Diagnoses Not on filein this encounter"
--- OUTSIDE RECORDS SUMMARY | ~2018-08-04 | XMS | Encounter Summary ---
Demographics + + + | Address | [address] | | | [place] [address] | + + + | Home Phone | | + + + | Preferred Language | Unknown | + + + | Marital Status | Unknown | + + + | Protestant Affiliation | Unknown | + + + | Race | Unknown | + + + | Ethnic Group | Unknown | + + + Author + + + | Author | [facility] | | | and Chrisana | + + + | Organization | [facility] | | | and Chrisana [...] Team Providers + +------+ + | Care Senior Business Objects Developer Name | Role | Phone | + [...] [place] | | | | | [phone] | [place] [address] | | +--------+ + + + + [...] [place] | | | | | | [address] | | | | | | | | +--------+ + + + + | 08/08/ | Appointment | Radiology | Geovanny Oswald, | | | 2018 | | | MD, FACS [address] | | | | | | [place] | | | | | | [address] | | | | | | | [...]
--- OUTSIDE RECORDS SUMMARY | ~2018-08-04 | XMS | Encounter Summary ---
Demographics + + + | Address | [address] | | | [place] [address] | + + + | Home Phone | | + + + | Preferred Language | Unknown | + + + | Marital Status | Unknown | + + + | Worship Affiliation | Unknown | + + + | Race | Unknown | + + + | Ethnic Group | Unknown | + + + Author + + + | Author | [facility] | | | and Chrisana | + + + | Organization | [facility] | | | and Chrisana [...] Team Providers + +------+ + | Care Yeast Pumper Name | Role | Phone | + +------+ + | Bo Tomlin MD | PCP | | + +------+ + Encounter Details +--------+ + + + + | Date | Type | Department | Care Team | Description | +--------+ + + + + | 06/22/ | Abstract | [facility] | Geovanny Oswald, | | | 2018 | | SURGERY [address] | [place] | | | | | [place], [place] | [place], [place] | | | | | [address] | [address] | | | | | [phone] | | | +--------+ + + + [...] of this encounter Progress Notes Charley Cordero, [facility] - 06/22/2018 1658 PSTPelvic Ultrasound 06/07/2018 at [facility] FINDINGS: Scanning over the palpable lump [...] [place] | | | | | | [address] | | | | | | | | +--------+ + + + + | 08/08/ | Appointment | Radiology | Geovanny Oswald, | | | 2018 | | | [place] | | | | | | [place] | | | | | | [address] | | | | | | | | +--------+ + + + + as of this encounter Visit Diagnoses Not on filein this encounter"
--- OUTSIDE RECORDS SUMMARY | ~2018-08-04 | XMS | Encounter Summary ---
Demographics + + + | Address | [address] | | | [place] [address] | + + + | Home Phone | | + + + | Preferred Language | Unknown | + + + | Marital Status | Unknown | + + + | Mosque Affiliation | Unknown | + + + | Race | Unknown | + + + | Ethnic Group | Unknown | + + + Author + + + | Author | [facility] | | | and Chrisana | + + + | Organization | [facility] | | | and [...] Team Providers + +------+ + | Care First Aid Trainer Name | Role | Phone | + +------+ + | Bo Tomlin MD | PCP | | + +------+ + Encounter Details +--------+ + + + + | Date | Type | Department | Care Team | Description | +--------+ + + + + | 06/27/ | Abstract | [facility] | Geovanny Oswald, | | | 2018 | | SURGERY [address] | [place] | | | | | [place], [place] | [place], [place] | | | | | [address] | [address] | | | | | [phone] | | | +--------+ + + + [...] of this encounter Progress Notes Charley Cordero, [facility] - 06/27/2018 1625 PSTPelvic Ultrasound 06/07/[address] [facility] FINDINGS: Scanning over the palpable lump as [...] hernia UPPER GI ON 06/07/2018 at [facility] FINDINGS: An abdominal film demonstrates a [...] [place] | | | | | | [address] | | | | | | | | +--------+ + + + + | 08/08/ | Appointment | Radiology | Geovanny Oswald, | | | 2018 | | | [place] | | | | | | [place] | | | | | | [address] | | | | | | | | +--------+ + + + + as of this encounter Visit Diagnoses Not on filein this encounter"
--- OUTSIDE RECORDS SUMMARY | ~2018-08-04 | XMS | Encounter Summary ---
Demographics + + + | Address | [address] | | | [place] [address] | + + + | Home Phone | | + + + | Preferred Language | Unknown | + + + | Marital Status | Unknown | + + + | Spiritism Affiliation | Unknown | + + + | Race | Unknown | + + + | Ethnic Group | Unknown | + + + Author + + + | Author | [facility] | | | and Chrisana | + + + | Organization | [facility] | | | and Chrisana [...] Team Providers + +------+ + | Care Trim Setter Helper Name | Role | Phone | + +------+ + | Bo Tomlin MD | PCP | | + +------+ + Encounter Details +--------+ + + + + | Date | Type | Department | Care Team | Description | +--------+ + + + + | 07/04/ | Abstract | [facility] | Provider, | Inguinal pain, | | 2019 | | SURGERY [address] | [address] | unspecified | | | | [place], [place] | [place] | laterality; | | | | [address] | [place] [address] | Gastroparesis; | | | | [phone] | | Irritable bowel | | | [...] [place] | | | | | | [address] | | | | | | | | +--------+ + + + + | 08/08/ | Appointment | Radiology | Geovanny Oswald, | | | 2018 | | | [place] | | | | | | [place] | | | | | | [address] | | | | | | | [...]
[~2018-08-04 15:28] MED LIST changes: +PRAZOSIN HCL2 MG PO; +RANITIDINE HCL300 MG PO
== END 2018-08-04 16:27 | disposition home or self-care (01) ==
LOC: ED 15:28
DX: S00.01XA Abrasion of scalp, initial encounter (principal); W22.8XXA Striking against or struck by other objects, initial encounter; F43.10 Post-traumatic stress disorder, unspecified; F41.9 Anxiety disorder, unspecified; F17.200 Nicotine dependence, unspecified, uncomplicated; Z88.5 Allergy status to narcotic agent; Z79.899 Other long term (current) drug therapy
CPT/HCPCS: 99282

== ENCOUNTER 2019-06-21 05:40 | Day surgery (SDC) | payer OTHER ==
[~2019-06-21] VITALS: Ht 180.3 cm; Wt 79.4 kg
--- NOTE | ~2019-06-21 | OR ---
[facility] [address] [place], [place] [address] Draft DATE OF OPERATION: 06/21/2019 SURGEON: Nusrat Guzman MD PREOPERATIVE DIAGNOSIS: Incarcerated right femoral hernia. POSTOPERATIVE DIAGNOSIS: Incarcerated right femoral hernia, properitoneal fat. PROCEDURE: Repair of incarcerated right femoral hernia with implantation of Prolene mesh (properitoneal repair trans-inguinal approach). ANESTHESIA: General endotracheal; Nusrat Chiu CRNA, and local 20 mL of 0.25% Marcaine with epinephrine. INDICATION: This 43-year-old man is a patient of Dr. Cj Pugh, who was noted to have a mass in the right groin. Clinical examination shows this to be a femoral hernia as it is below the inguinal ligament. It is not reducible. He has occasional pain in the area. He feels that the problem has been present for about a year. He is admitted at this time to undergo repair of the incarcerated non-reducible femoral hernia, understand the risks of bleeding, infection, recurrence and so on. FINDINGS: A trans-inguinal approach was used. Herniated properitoneal fat was noted. It was completely unreducible. A portion of the inguinal ligament at the femoral canal needed to be incised to allow for reduction of the fatty tissue into the properitoneal space. Repair included implantation of mesh in the properitoneal space covering the femoral defect as well as reconstructing the floor itself. The mesh was secured partially to Wes's ligament with a transition to the inguinal ligament in the usual way. The cord was unencumbered by the mesh and good repair has been afforded. DESCRIPTION OF PROCEDURE: The patient was brought to the operating room, given a general endotracheal anesthetic. Preoperative antibiotic Ancef was given. Sequential compression device stockings used and heparin subcutaneously administered. The abdomen was clipped and prepared with a chlorhexidine solution and draped sterilely. The palpable hernia below the inguinal PATIENT NAME: HILLARY CASTRO OPERATIVE REPORT DATE OF : 77 REPORT #: [id number] PHYSICIAN: NUSRAT GUZMAN MD PCP: CJ PUGH MD REPORT IS CONFIDENTIAL AND NOT TO BE RELEASED WITHOUT AUTHORIZATION [facility] [address] [place], [place] [address] Draft ligament was non-reducible, soft, and about 4 cm in size. An incision was made cephalad to the inguinal ligament. Incision was maintained and small dissection was carried through the subcutaneous tissue. The external oblique incised along its fibers revealing the underlying cord. The cord was mobilized and encircled with a Rosalba drain. The floor of the inguinal canal was not particularly attenuated, but was incised allowing for interrogation of the properitoneal space. Despite to have various efforts, the properitoneal fat could not be reduced. Dissection was begun on the outside of the external oblique and the incarcerated portion of the femoral hernia appeared to be fat. This was dissected free completely. Photographs were taken. The femoral defect could easily be defined with a right angle clamp. Ultimately, a portion of the inguinal ligament had to be incised to allow for reduction of the hernia. It was accomplished without problem and replaced the properitoneal space. The inguinal defect was then closed with an interrupted 2-0 Prolene suture. Blunt dissection was undertaken in the properitoneal space. A segment of Prolene mesh was cut to an elliptical configuration and secured in the properitoneal space completely covering the femoral defect. The sutures were secured to the Wes's ligament and transitioned to the inguinal ligament more laterally. A defect was cut in the graft to accommodate the cord and the grafts secured beneath the tendon of the transversus abdominus widely securing the floor of the canal as well. The examination of the femoral defect outside the inguinal ligament allowed for placement of a single suture additionally to secure the area. Photographs were taken. The cord was replaced into the canal as was the ilioinguinal nerve, which was carefully preserved. The external oblique reapproximated with running 2-0 Vicryl. Ty's layer was reapproximated with interrupted 2-0 Vicryl and the skin was then closed with running subcuticular 3-0 Vicryl. Steri-Strips were applied. The patient tolerated the procedure well. BLOOD LOSS: Minimal. COMPLICATIONS: None. Nusrat Guzman MD /MODL /[id number] PATIENT NAME: HILLARY CASTRO OPERATIVE REPORT DATE OF : 77 REPORT #: [id number] PHYSICIAN: NUSRAT GUZMAN MD PCP: CJ PUGH MD REPORT IS CONFIDENTIAL AND NOT TO BE RELEASED WITHOUT AUTHORIZATION [address] [address] Draft cc: Cj Pugh MD Copies: CJ PUGH DMD ~ PATIENT NAME: HILLARY CASTRO OPERATIVE REPORT DATE OF : 77 REPORT #: [id number] PHYSICIAN: NUSRAT GUZMAN MD PCP: CJ PUGH MD REPORT IS CONFIDENTIAL AND NOT TO BE RELEASED WITHOUT AUTHORIZATION
[~2019-06-21 05:40] MED LIST changes: +DOXEPIN HCL100 MG PO; +MINIPRESS5 MG PO; +PROTONIX40 MG PO; +SUCRALFATE1 GM PO
[2019-06-21] MEDS ORDERED: TYLENOL325 MG PO (05:58)
[2019-06-21] MEDS ORDERED: IBUPROFEN200 M1 PO (05:59)
--- NOTE | 2019-06-21 06:10 | NUR ---
WHILE STARTING IV PATIENT STATED, " I AM AFRAID OF NEEDLES, I AM GOING TO PUNCH YOU. I HAVE SEEN ALOT OF PEOPLE BECAUSE OF NEEDLES". PATIENT RESTLESS, CLENCHING BLANKET AND SQUEEZING EYES SHUT. REASSURED PATIENT, AND INSERTED IV TO PATIENT. THEN PATIENT STATES " THAT WASN'T SO BAD" APPEARED CALMER, NOW LAUGHING WITH .
--- NOTE | 2019-06-21 09:08 | NUR ---
06/21/19 0908 Beverly Lou 0900 PATIENT INTO RECOVERY, PATIENT NEEDING AIRWAY SUPPORT, ORAL AIRWAY IN PLACE. NURSE AT [facility] PROVIDING JAW THRUST FOR SUPPORT. PATIENT ON 10 L MASK, NON RESPONSIVE AT THIS TIME. VSS. 0906 POSITIENT HEAD TO SIDE PATIENT APPEARS TO BREATHING WITHOUT SUPPORT, ORAL AIRWAY STILL IN PLACE. NOTED FOG TO MASK WITH EXPIRATION DRESSING TO R FEMORAL C/D/I.
[2019-06-21] MEDS ORDERED: IBUPROFEN600 MG PO (09:35)
[2019-06-21] MEDS ORDERED: HYDROMORPHONE HC4 MG PO ×2 (09:35→12:22)
[2019-06-21] MEDS ORDERED: TYLENOL EXTRA500 MG PO (09:36)
--- NOTE | 2019-06-21 09:46 | NUR ---
PT ALERT ORIENTED AND SUPPORTED BY HIS LASHA. COULDN'T TELL IF PT WAS NERVOUS OR HAVING TROUBLE GETTING COMFORTABLE-LEGS MOVED OFTEN. BOTH PLEASANT, INTERESTED IN PROCESS. PT REQUESTED PRAYER, WILL FOLLOW NEEDED
--- NOTE | 2019-06-21 11:07 | NUR ---
PT ARRIVES TO DS RM 4 FROM PACU AWAKE AND ALERT. PT RESP EVEN AND UNLABORED, PT SATS GREATER THAN 94% ON RA. PT STATES PAIN 6/10 IN SURGICAL SITE, DENIES NAUSEA. PT SPOUSE, LASHA AND MOTHER IN LAW AT BEDSIDE. SCD'S IN PLACE AND PLUGGED IN, PUMPING. CALL LIGHT WITHIN REACH. PT PROVIDED ICED WATER AND CRACKERS.
--- NOTE | 2019-06-21 11:30 | NUR ---
1120: PT TOLERATES WATER AND CRACKERS WITHOUT NAUSEA. PROVIDED COFFEE AND PUDDING PER REQUEST. 1130: PT USES CALL LIGHT TO NOTIFY RN OF URGE TO VOID. PT ASSISTED TO SIDE OF BED, DENIES DIZZINESS OR NAUSEA WITH POSITION CHANGE. PT AMBULATES WITH STEADY GAIT, RN ASSISTED. ABLE TO VOID 150 MLS LASHA COLORED URINE. PT BACK TO BED, FAMILY AT BEDSIDE. CALL LIGHT WITHIN REACH.
--- NOTE | 2019-06-21 12:00 | NUR ---
PT RESTING IN BED WITH SPOUSE AT BEDSIDE. PT STATES PAIN IS "TOLERABLE" AND RATES 4/10 "ACHING, PRESSURE." DC CRITERIA MET AT THIS TIME, PT DESIRES TO DC HOME. 1230: IV REMOVED WNL, TIP IN TACT. DC INSTRUCTIONS GIVEN IN PRESENCE OF PT AND SPOUSE, ALL QUESTIONS ADDRESSED. HARD COPY OF PAIN MEDICATION SCRIPT GIVEN TO PT IN DC FOLDER. PT DC'S FROM DS RM 4 VIA HOME WITH SPOUSE.
== END 2019-06-21 12:40 | disposition home or self-care (01) ==
LOC: DS 05:40
PROVIDERS: Surgery
PROC: 0YU70JZ Supplement Right Femoral Region with Synthetic Substitute, Open Approach (ICD-10-PCS; principal; 2019-06-21 06:45)
DX: K41.30 Unilateral femoral hernia, with obstruction, without gangrene, not specified as recurrent (principal); F32.9 Major depressive disorder, single episode, unspecified; K21.9 Gastro-esophageal reflux disease without esophagitis; G47.30 Sleep apnea, unspecified; F17.210 Nicotine dependence, cigarettes, uncomplicated; G43.909 Migraine, unspecified, not intractable, without status migrainosus; Z88.5 Allergy status to narcotic agent; Z79.899 Other long term (current) drug therapy
CPT/HCPCS: 00830; C1781; J0330; J0690; J1100; J1644; J1885; J2250; J2405; J2704; J2765; J3010; J7121

== ENCOUNTER 2019-06-28 14:16 | Emergency (ER) | payer OTHER ==
[~2019-06-28] VITALS: Ht 180.3 cm; Wt 79.4 kg
[~2019-06-28 14:16] MED LIST changes: +HYDROMORPHONE HC4 MG PO; +IBUPROFEN200 M1 PO; +IBUPROFEN600 MG PO; +TYLENOL EXTRA500 MG PO; +TYLENOL325 MG PO
[2019-06-28] MEDS ORDERED: METOCLOPRAMIDE10 MG PO (14:50)
--- NOTE | 2019-06-30 21:07 | CONS ---
[facility] [address] [place], [place] [address] Signed DATE OF CONSULTATION: 06/28/2019 TIME: 4 p.m. REQUESTING PHYSICIAN: Ludwin Diego MD. PROBLEM: Swelling in right groin following right femoral hernia. HISTORY OF PRESENT ILLNESS: This 43-year-old man underwent repair of an incarcerated right femoral hernia electively by me a week ago. Implantation of Prolene mesh in the properitoneal space was undertaken. The patient had noted swelling and firmness in the area of the groin. He called my office and said the swelling was "in the scrotum" but in fact no scrotal swelling has been noted. He was seen by Dr. Pugh or at least conferred with Dr. Pugh, who referred him to the emergency room for further evaluation. I was unavoidably detained in the operating room and was unable to see him earlier in the day. I was called by Dr. Digeo, who had seen him and he was shown to have some edema and swelling in the right groin area at the site of the incision, notably the incision is above the inguinal ligament. He has had no nausea or vomiting. He has had some hesitancy in urination. He has had no fever, chills, or other problem. PHYSICAL EXAMINATION: GENERAL: Pleasant man who is somewhat "busy" and active, but without any toxicity. He is accompanied by his . CHEST: Shows normal respiratory excursion. HEART: Pulse is regular. : Examination of the right groin area shows the incision to be healing well, there is no sign of drainage, no sign of ecchymosis. There is no femoral hernia at this time. There is mild diffuse edema and a developing healing ridge. ASSESSMENT: The patient had a fair amount of manipulation of the right groin, but his finding is mostly consistent with a healing ridge, which is a typical finding 1 week plus from operative intervention of any sort. I discussed this with them. I do not see any sign of recurrent hernia, there is no sign of infection, there is no drainage. I have asked him to continue to monitor the area. I will prescribe Flomax 0.4 mg p.o. Electronically Signed By: NUSRAT GUZMAN MD 06/30/19 2107 PATIENT NAME: HILLARY CASTRO CONSULTATION DATE OF : 77 REPORT #: [id number] PHYSICIAN: NUSRAT GUZMAN MD PCP: CJ PUGH MD REPORT IS CONFIDENTIAL AND NOT TO BE RELEASED WITHOUT AUTHORIZATION [facility] [address] [place], [place] [address] Signed daily, #30 as he does have some urinary hesitancy currently. It would be best if he is not straining to urinate obviously. If things should change in any way, particularly should the wound open or he should have drainage or other issues, I am happy to see him again obviously. MD IGLESIA Antonio/ANGELA /[id number] cc: MD Ludwin Floyd MD Copies: CJ PUGH DMD, WILLIAM S MD ~ Electronically Signed By: NUSRAT GUZMAN MD 06/30/19 2107 PATIENT NAME: HILLARY CASTRO CONSULTATION DATE OF : 77 REPORT #: [id number] PHYSICIAN: NUSRAT GUZMAN MD PCP: CJ PUGH MD REPORT IS CONFIDENTIAL AND NOT TO BE RELEASED WITHOUT AUTHORIZATION
== END 2019-06-28 16:29 | disposition home or self-care (01) ==
LOC: ED 14:16
DX: G89.18 Other acute postprocedural pain (principal); R10.31 Right lower quadrant pain; F41.9 Anxiety disorder, unspecified; F17.200 Nicotine dependence, unspecified, uncomplicated; Z79.899 Other long term (current) drug therapy
CPT/HCPCS: 99283

== ENCOUNTER 2019-07-17 11:56 | Day surgery (SDC) | payer OTHER ==
[~2019-07-17] VITALS: Ht 177.8 cm; Wt 78.9 kg
[~2019-07-17 11:56] MED LIST changes: +METOCLOPRAMIDE10 MG PO
--- NOTE | 2019-07-17 12:59 | NUR ---
07/17/19 Armani9 Brittany Price 1250-PATIENT ARRIVED TO PACU ON 2L NC AWAKE DROWSY. HOB ELEVATED. RR EVEN. IVF INFUSING.
--- NOTE | 2019-07-18 11:29 | PATH ---
[facility] [address] [place], [place] [address] Signed SPECIMEN(S): A DUODENUM SPECIMEN(S): B PRE PYLORIC ULCER SPECIMEN(S): C MID STOMACH SPECIMEN(S): D LOWER ESOPHAGUS SPECIMEN SOURCE: A. DUODENUM B. PRE PYLORIC ULCER C. MID STOMACH D. LOWER ESOPHAGUS CLINICAL HISTORY: Pre: Dysphagia, abdominal pain, diarrhea. Post: Ulcerative (illegible), gastritis, prepyloric ulceration. MICROSCOPIC DESCRIPTION: Histologic sections of all submitted blocks are examined by light microscopy. These findings, together with the gross examination, support the pathologic diagnosis. FINAL PATHOLOGIC DIAGNOSIS: A. Duodenum, biopsy: - Duodenal mucosa with no histopathologic abnormality. - Negative for dysplasia or malignancy. B. Stomach, prepyloric ulcer, biopsy: - Ulcerated antral mucosa with chronic, active gastritis. - Positive for Helicobacter organisms on HE stain. - Negative for dysplasia or malignancy. C. Stomach, mid, biopsy: - Oxyntic mucosa with chronic, active gastritis. - Positive for Helicobacter organisms on HE stain. - Negative for dysplasia or malignancy. D. Esophagus, lower, biopsy: - Squamous mucosa with changes consistent with mild reflux esophagitis. - Negative for intestinal metaplasia, dysplasia, or malignancy. NAL:cml:C2NR GROSS DESCRIPTION: Four specimens are received in four containers, labeled "JOHN." A. The specimen, labeled "JOHN," and designated on the requisition "duodenum biopsy," is received in formalin and consists of two pink-[place] soft tissue fragment(s) that measure 0.2-0.3 cm in greatest PATIENT NAME: HILLARY CASTRO PATHOLOGY DATE OF : 77 REPORT #: [id number] PHYSICIAN: DL ROPER PCP: CJ PUGH MD REPORT IS CONFIDENTIAL AND NOT TO BE RELEASED WITHOUT AUTHORIZATION [facility] [address] [place], [place] [address] Signed dimension. The specimen is entirely submitted in cassette (A1). B. The specimen, labeled "JOHN," and designated on the requisition "pre pyloric ulcer," is received in formalin and consists of one pink-[place] soft tissue fragment(s) that measure 0.2 cm in greatest dimension. The specimen is entirely submitted in cassette (B1). C. The specimen, labeled "JOHN," and designated on the requisition "mid stomach biopsy," is received in formalin and consists of two pink-[place] soft tissue fragment(s) that measure 0.1-0.2 cm in greatest dimension. The specimen is entirely submitted in cassette (C1). D. The specimen, labeled "JOHN," and designated on the requisition "lower esophagus biopsy," is received in formalin and consists of two [place] soft tissue fragment(s) that measure 0.3-0.4 cm in greatest dimension. The specimen is entirely submitted in cassette (D1). JS (under the direct supervision of a pathologist) The Gross Description was prepared using a voice recognition system. The report was reviewed for accuracy; however, sound-alike word errors, addition and/or deletions may occur. If there is any question about this report, please contact Client Services. PERFORMING LABORATORY: The technical component was performed by [employer], [address] [place] [address] (Representative: Nicole Johnson MD; CLIA# [id number]). Professional interpretation was performed by [employer], [facility], [address] [address] (CLIA# [id number]). Diagnostician: Ina Reid MD Pathologist Electronically Signed 07/18/2019 Copies: ~ PATIENT NAME: HILLARY CASTRO PATHOLOGY DATE OF : [birth year] REPORT #: [id number] PHYSICIAN: DL PATHOLOGY PCP: CJ PUGH MD REPORT IS CONFIDENTIAL AND NOT TO BE RELEASED WITHOUT AUTHORIZATION
--- NOTE | 2019-07-18 13:10 | OR ---
[facility] [address] [place], [place] [address] Signed DATE OF OPERATION: 07/17/2019 SURGEON: Nusrat Guzman MD PREOPERATIVE DIAGNOSIS: Dysphagia and epigastric pain. POSTOPERATIVE DIAGNOSES: 1. Severe ulcerative distal esophagitis. 2. Mid gastric findings of gastritis and pre-pyloric erosions. ANESTHESIA: Intravenous sedation, fentanyl 100 mcg, Versed 4 mg. INDICATION: This 44-year-old man is a patient of Dr. Cj Pugh and known to me from the past having undergone repair of a right femoral hernia. He concurrently has had issues of dysphagia and multiple episodes of upper abdominal pain. He saw a gastroenterology nurse practitioner (practitionerThompson in [place]) where he was diagnosed with "gastroparesis." To my knowledge and his, he did not have a solid food emptying study. He has had no upper endoscopy. His symptoms of distal dysphagia have been going on for about a year. He has been empirically treated with PPI medication including Protonix. This has not been particularly helpful. Sucralfate was also given without relief. He does smoke one-half pack of cigarettes a day. He does not drink alcohol. He is admitted at this time to undergo upper endoscopy to better characterize his problem. The risks of bleeding, infection, perforation, and so forth were all reviewed and he understands and wished to proceed. FINDINGS: He had distal esophagitis and ulcerative esophagitis changes. The flap valve was marginal, but there was no large hiatal hernia. He had mid stomach gastritis as well as pre-pyloric superficial erosions. The duodenum was normal. CLOtest was negative. DESCRIPTION OF PROCEDURE: The patient was brought to the endoscopy suite, given topical lidocaine spray, placed in lateral decubitus position. He was given intravenous sedation to the point of slurred speech and nystagmus. A bite block was placed. Full cardiopulmonary monitoring was maintained. An Olympus video upper endoscope was passed in the hypopharynx. The vocal cords Electronically Signed By: NUSRAT GUZMAN MD 07/18/19 1310 PATIENT NAME: HILLARY CASTRO OPERATIVE REPORT DATE OF : [birth year] REPORT #: [id number] PHYSICIAN: NUSRAT GUZMAN MD PCP: CJ PUGH MD REPORT IS CONFIDENTIAL AND NOT TO BE RELEASED WITHOUT AUTHORIZATION [facility] [address] [place], [place] [address] Signed appeared normal. The scope was advanced in the esophagus without problem. In the distal esophagus were linear ulcerations consistent with severe ulcerative esophagitis. He had no evidence of Samaniego's epithelium. Scope was advanced to the stomach, which was insufflated with air. Rugal folds appeared normal. Manipulation of the scope to the antrum showed pre-pyloric erosive changes. Pylorus was not deformed. The scope was passed through into the duodenum. The duodenum was generally normal. Biopsies were obtained. The scope was withdrawn and biopsies taken of the pre-pyloric ulcerative changes and the scope withdrawn further and allowed to retroflex. This showed moderate gastritis of the midportion of the stomach in the proximal stomach. Biopsies were obtained for both NORM and pathologic testing. The flap valve appeared somewhat effaced, but there was no sign of large hiatal hernia. Scope was withdrawn and biopsies taken of distal esophagus where ulcerations were noted. There was no evidence of Samaniego's epithelium or neoplasm or stricture. Scope was further withdrawn. Remaining esophagus was normal. Scope was removed and the patient was taken to recovery room in good condition. CONCLUDING DIAGNOSIS: Distal ulcerative esophagitis and gastritis and pre-pyloric erosive changes. PLAN: We will re-initiate PPI medication if he is not taking it as well as Carafate. CLOtest thus far is negative. Pathology reports will be reviewed to assess for H pylori as well. MD IGLESIA Antonio/ANGELA /[id number] cc: MD Cee Floyd NP Copies: CJ PUGH DMD Electronically Signed By: NUSRAT GUZMAN MD 07/18/19 1310 PATIENT NAME: HILLARY CASTRO OPERATIVE REPORT DATE OF : [birth year] REPORT #: [id number] PHYSICIAN: NUSRAT GUZMAN MD PCP: CJ PUGH MD REPORT IS CONFIDENTIAL AND NOT TO BE RELEASED WITHOUT AUTHORIZATION [facility] [address] [place] [address] [place], [place] [address] Signed CEE WILKS NP ~ Electronically Signed By: NUSRAT GUZMAN MD 07/18/19 1310 PATIENT NAME: HILLARY CASTRO OPERATIVE REPORT DATE OF : [birth year] REPORT #: [id number] PHYSICIAN: NUSRAT GUZMAN MD PCP: CJ PUGH MD REPORT IS CONFIDENTIAL AND NOT TO BE RELEASED WITHOUT AUTHORIZATION
== END 2019-07-17 13:30 | disposition home or self-care (01) ==
LOC: OPS 11:56 → DS 11:56 → OPS 13:30
PROVIDERS: Surgery
PROC: 0DB68ZX Excision of Stomach, Via Natural or Artificial Opening Endoscopic, Diagnostic (ICD-10-PCS; 2019-07-17)
PROC: 0DB38ZX Excision of Lower Esophagus, Via Natural or Artificial Opening Endoscopic, Diagnostic (ICD-10-PCS; 2019-07-17)
PROC: 0DB98ZX Excision of Duodenum, Via Natural or Artificial Opening Endoscopic, Diagnostic (ICD-10-PCS; principal; 2019-07-17 13:00)
DX: K29.50 Unspecified chronic gastritis without bleeding (principal); B96.81 Helicobacter pylori [H. pylori] as the cause of diseases classified elsewhere; K22.10 Ulcer of esophagus without bleeding; K25.9 Gastric ulcer, unspecified as acute or chronic, without hemorrhage or perforation; F32.9 Major depressive disorder, single episode, unspecified; K21.0 Gastro-esophageal reflux disease with esophagitis; G47.30 Sleep apnea, unspecified; K41.90 Unilateral femoral hernia, without obstruction or gangrene, not specified as recurrent; F51.5 Nightmare disorder; Z88.5 Allergy status to narcotic agent
CPT/HCPCS: G0500; J2250; J3010; J7121

== ENCOUNTER 2020-05-28 17:05 | Emergency (ER) | payer OTHER ==
[~2020-05-28] VITALS: Ht 177.8 cm; Wt 79.4 kg
[~2020-05-28 17:05] MED LIST changes: +LEVOFLOXACIN750 MG PO; +OLANZAPINE5 MG PO
--- OUTSIDE RECORDS SUMMARY | 2020-05-28 17:08 | XMS ---
PreManage Notification: HILLARY CASTRO Security Manager Universal Events No recent Security Events currently on file CRITERIA MET - [facility] - 2 Visits in 30 Days CARE PROVIDERS There are no care providers on record at this time. [place] has no Care Guidelines for this patient. Jorden VISIT COUNT (12 MO.) 3 [place] [facility] TOTAL 3 NOTE: Visits indicate total known visits. ED/C VISIT TRACKING (12 MO.) 05/28/2020 17:06 [facility] [place] TYPE: Emergency COMPLAINT: - COLD/FLU SYMPTOMS 05/22/2020 23:15 [facility] TYPE: Emergency COMPLAINT: - FEVER,VOMITING DIAGNOSES: - Elevated white blood cell count, unspecified - Nicotine dependence, unspecified, uncomplicated - Fever, unspecified - Unspecified abdominal pain - Allergy status to narcotic agent - Other chcf (current) drug therapy 06/28/2019 14:17 [facility] [place] TYPE: Emergency COMPLAINT: - POST OP PROBLEM, SWELLING, URINE PROBLEM DIAGNOSES: - Other termite control service representative (current) drug therapy - Nicotine dependence, unspecified, uncomplicated - Right lower quadrant pain - Unspecified abdominal pain - Other acute postprocedural pain - Anxiety disorder, unspecified INPATIENT VISIT TRACKING (12 MO.) No inpatient visits to display in this time frame [email or web address]
== END 2020-05-28 18:52 | disposition home or self-care (01) ==
LOC: ED 17:05
DX: K52.9 Noninfective gastroenteritis and colitis, unspecified (principal); F17.200 Nicotine dependence, unspecified, uncomplicated; Z88.5 Allergy status to narcotic agent
CPT/HCPCS: 80053; 81001; 85025; 99284

== ENCOUNTER 2021-01-20 05:55 | Day surgery (SDC) | payer OTHER ==
[~2021-01-20] VITALS: Ht 177.8 cm; Wt 76.3 kg
[~2021-01-20 05:55] MED LIST changes: +AMOXICILLIN500 MG PO; +CLARITHROMYCIN500 MG PO
[2021-01-20] MEDS ORDERED: SEROQUEL100 MG PO ×2 (06:21)
--- NOTE | 2021-01-20 06:26 | NUR ---
PT WAS SWABBED FOR COVID 19
--- NOTE | 2021-01-20 06:26 | NUR ---
PT WAS SWABBE OFR COVID 19
--- NOTE | 2021-01-20 08:22 | NUR ---
01/20/21 0822 Brittany Price 0818-PATIENT ARRIVED TO PACU ON 2L NC RR EVEN. PATIENT LAYING LEFT LATERAL SLEEPING. ABDOMEN SOFT. IVF INFUSING. 0820-PATIENT PLACED ON RA RR EVEN 95%
--- NOTE | 2021-01-21 07:21 | OR ---
[facility] [address] [place], [place] [address] Signed DATE OF OPERATION: 01/20/2021 SURGEON: Yoly Mc MD PREOPERATIVE DIAGNOSES: 1. Right mid quadrant abdominal pain. 2. Fecal urgency. POSTOPERATIVE DIAGNOSES: 1. 8 mm polyp at 7 cm (snare). 2. 4 mm polyps at 25 cm (distal sigmoid colon). 3. 4 mm polyps x2 at 20 cm (rectosigmoid junction). 4. Minimal to moderate internal hemorrhoids. PROCEDURES: Colonoscopy, snare polypectomy, hot biopsy and cold biopsies. ESTIMATED BLOOD LOSS: None. INDICATIONS: Hillary is a 45-year-old gentleman asked to see me for a colonoscopy. He has been through workup already as described in history of present illness. He has been trying to make his way down to [place] for some subspecialty testing. However with the COVID pandemic that has been difficult. He was therefore asked to see me locally as a general surgeon for colonoscopy. I had met with Hillary and his and explained them a colonoscopy. I gave him a booklet on colonoscopy. His happens to be a medical concierge. We also reviewed the written instructions for the bowel prep line by line. He understands there is risk to the procedure including, but not limited to gas bloating, crampy abdominal pain, bleeding, perforation requiring surgery, and missed diagnosis. He also understands the need for IV conscious sedation. He had expressed understanding and wished to proceed. PROCEDURE NOTE: Hillary was taken into our endoscopy suite and placed in the left lateral decubitus position. He was obviously a bit anxious. As we gave him Versed and fentanyl, he explained that he can wake up very violent during or after procedures. We therefore had a couple extra people in the room throughout the procedure. In the end, he took 9 mg of Versed and 150 mcg of fentanyl to cover the case. Technically, he is quite easy to . He did wake up once or twice during the procedure a little anxious, but was Electronically Signed By: YOLY MC MD 01/21/21 0721 PATIENT NAME: HILLARY CASTRO OPERATIVE REPORT DATE OF : 77 REPORT #: [id number] PHYSICIAN: YOLY MC MD PCP: MARKY BELLA REPORT IS CONFIDENTIAL AND NOT TO BE RELEASED WITHOUT AUTHORIZATION [facility] [address] [place], [place] [address] Signed quite groggy as well. We did use some mild abdominal compression, we never could get the scope into the terminal ileum itself. We did do a digital rectal exam and his prostate is not overly enlarged, but it is moderately indurated for his age. No external hemorrhoids. No evidence of any fistulas externally. He had good sphincter tone. The scope had been introduced and advanced as above. His prep was moderate. He still had several areas of significant particulate stool matter that could not be suctioned through the scope. I think in the future he would be better served with a double bowel prep. Nevertheless, we could easily see his cecum and the ileocecal valve. We did take pictures throughout for photodocumentation. We tried several times to get the camera to go up and into the terminal ileum. Unfortunately, it was buckling and even with additional sedation, we were not able to advance the scope any further. We therefore could not advance the scope into the terminal ileum. We had slowly withdrawn the scope. We took random biopsies throughout as listed above. This included the right colon, transverse colon, left colon, sigmoid colon and rectum. Also, the above-mentioned polyps were easily removed with the help of hot biopsy forceps. We did use the snare and hot biopsy forceps for the polyp at 7 cm. Once in the rectum, the scope had been retroflexed, he does have standard minimal to moderate internal hemorrhoid columns. We saw no evidence of any inflammatory changes throughout the colon. After this, the gas was suctioned out and the colonoscope removed. Hillary tolerated the procedure well. RECOMMENDATIONS: I will see Hillary back in my office in 7 to 14 days to review his results. He will probably maintain his appointment with a specialist in [place]. Yoly Mc MD ALB/MODL /[id number] cc: MD Marky Jensen PA Copies: YOLY MC MD Electronically Signed By: YOLY MC MD 01/21/21 0721 PATIENT NAME: HILLARY CASTRO OPERATIVE REPORT DATE OF : 77 REPORT #: [id number] PHYSICIAN: YOLY MC MD PCP: MARKY BELLA REPORT IS CONFIDENTIAL AND NOT TO BE RELEASED WITHOUT AUTHORIZATION [address] [address] Signed MARKY BELLA ~ Electronically Signed By: YOLY MC MD 01/21/21 0721 PATIENT NAME: HILLARY CASTRO RYANNE OPERATIVE REPORT DATE OF : [birth year] REPORT #: [id number] PHYSICIAN: YOLY MC MD PCP: MARKY BELLA REPORT IS CONFIDENTIAL AND NOT TO BE RELEASED WITHOUT AUTHORIZATION
--- NOTE | 2021-01-21 16:18 | PATH ---
[facility] [address] [place], [place] [address] Signed SPECIMEN(S): A RECTAL POLYP AT 7 CM SPECIMEN(S): B SIGMOID POLYP AT 25 CM SPECIMEN(S): C ASCENDING/RIGHT COLON BIOPSY SPECIMEN(S): D TRANSVERSE COLON BIOPSY SPECIMEN(S): E DESCENDING/LEFT COLON BIOPSY SPECIMEN(S): F SIGMOID COLON BIOPSY SPECIMEN(S): G DISTAL SIGMOID POLYP AT 20 CM SPECIMEN(S): H RECTAL BIOPSY SPECIMEN SOURCE: A. RECTAL POLYP AT 7 CM B. SIGMOID POLYP AT 25 CM C. ASCENDING/RIGHT COLON BIOPSY D. TRANSVERSE COLON BIOPSY E. DESCENDING/LEFT COLON BIOPSY F. SIGMOID COLON BIOPSY G. DISTAL SIGMOID POLYP AT 20 CM H. RECTAL BIOPSY CLINICAL HISTORY: RUQ pain, fecal urgency. Post: Colon/rectal polyps, internal hemorrhoids. MICROSCOPIC DESCRIPTION: Histologic sections of all submitted blocks are examined by light microscopy. These findings, together with the gross examination, support the pathologic diagnosis. FINAL PATHOLOGIC DIAGNOSIS: A. Rectum, 7 cm, polypectomy: - Tubular adenoma. B. Colon, sigmoid at 25 cm, polypectomy: - Colonic mucosa with mild hyperplastic changes. C. Colon, ascending/right, biopsy: - Colonic mucosa with no significant pathologic changes. D. Colon, transverse, biopsy: - Colonic mucosa with no significant pathologic changes. E. Colon, descending/left, biopsy: - Colonic mucosa with no significant pathologic changes. F. Colon, sigmoid, biopsy: - Colonic mucosa with no significant pathologic changes. G. Colon, distal sigmoid at 20 cm, polypectomy: - Tubular adenoma. PATIENT NAME: HILLARY CASTRO PATHOLOGY DATE OF : [birth year] REPORT #: [id number] PHYSICIAN: DL ROPER PCP: MARKY BELLA REPORT IS CONFIDENTIAL AND NOT TO BE RELEASED WITHOUT AUTHORIZATION [facility] [address] [place], [place] [address] Signed H. Rectum, biopsy: - Colonic mucosa with no significant pathologic changes. BRP:cml:C2NR GROSS DESCRIPTION: Eight specimens are received in eight containers, labeled "JOHN." A. The specimen, labeled "JOHN, 1," and designated on the requisition "rectum polypectomy 7 cm," is received in formalin and consists of six red freckled, [place] soft tissue fragments that measure 0.2 up to 0.6 cm in greatest dimension. The specimen is entirely submitted in cassette (A1). B. The specimen, labeled "JOHN, 2," and designated on the requisition "sigmoid polypectomy 25 cm," is received in formalin and consists of two [place] soft tissue fragments that measure 0.3 cm in greatest dimension. The specimen is entirely submitted in cassette (B1). C. The specimen, labeled "JOHN, 3," and designated on the requisition "ascending/right biopsy," is received in formalin and consists of one red freckled, [place] soft tissue fragment that measures 0.5 cm in greatest dimension. The specimen is entirely submitted in cassette (C1). D. The specimen, labeled "JOHN, 4," and designated on the requisition "transverse biopsy," is received in formalin and consists of one [place] soft tissue fragment that measures 0.4 cm in greatest dimension. The specimen is entirely submitted in cassette (D1). E. The specimen, labeled "JOHN, 5," and designated on the requisition "descending/left biopsy," is received in formalin and consists of one [place] soft tissue fragment that measures 0.4 cm in greatest dimension. The specimen is entirely submitted in cassette (E1). F. The specimen, labeled "JOHN, 6," and designated on the requisition "sigmoid biopsy," is received in formalin and consists of one [place] soft tissue fragment that measures 0.4 cm in greatest dimension. The specimen is entirely submitted in cassette (F1). G. The specimen, labeled "JOHN, 7," and designated on the requisition "sigmoid polypectomy 20 cm," is received in formalin and consists of two [place] soft tissue fragments that measure 0.4 and 0.5 cm in greatest dimension. The specimen is entirely submitted in cassette (G1). H. The specimen, labeled "JOHN, 8," and designated on the requisition "rectum biopsy," is received in formalin and consists of one elongated, polypoid, [place] soft tissue fragment that measures 0.6 cm in greatest dimension. The specimen is entirely submitted in cassette (H1). AI (under the direct supervision of a pathologist) PATIENT NAME: HILLARY CASTRO PATHOLOGY DATE OF : [birth year] REPORT #: [id number] PHYSICIAN: DL ROPER PCP: MARKY BELLA REPORT IS CONFIDENTIAL AND NOT TO BE RELEASED WITHOUT AUTHORIZATION [facility] [address] [place], [place] [address] Signed The Gross Description was prepared using a voice recognition system. The report was reviewed for accuracy; however, sound-alike word errors, addition and/or deletions may occur. If there is any question about this report, please contact Client Services. PERFORMING LABORATORY: The technical component was performed by [employer], [address] [place] [address] (Wine Specialist: Nicole Johnson MD; CLIA# [id number]). [facility], [address] [place] [address] (CLIA# [id number]). Diagnostician: Clarke Garcia MD Pathologist Electronically Signed 01/21/2021 Copies: ~ PATIENT NAME: HILLARY CASTRO PATHOLOGY DATE OF : 77 REPORT #: [id number] PHYSICIAN: DL ROPER PCP: MARKY BELLA REPORT IS CONFIDENTIAL AND NOT TO BE RELEASED WITHOUT AUTHORIZATION
== END 2021-01-20 09:33 | disposition home or self-care (01) ==
LOC: OPS 05:55 → DS 05:55 → OPS 09:33
PROVIDERS: ATTEND Colon & Rectal Surgery
PROC: 0DBE8ZZ Excision of Large Intestine, Via Natural or Artificial Opening Endoscopic (ICD-10-PCS; 2021-01-20)
PROC: 0DBE8ZZ Excision of Large Intestine, Via Natural or Artificial Opening Endoscopic (ICD-10-PCS; 2021-01-20)
PROC: 0DBE8ZZ Excision of Large Intestine, Via Natural or Artificial Opening Endoscopic (ICD-10-PCS; principal; 2021-01-20 07:30)
DX: R10.31 Right lower quadrant pain (principal); R15.2 Fecal urgency; D12.5 Benign neoplasm of sigmoid colon; D12.8 Benign neoplasm of rectum; K64.8 Other hemorrhoids; F17.210 Nicotine dependence, cigarettes, uncomplicated; F12.90 Cannabis use, unspecified, uncomplicated; Z20.822 Contact with and (suspected) exposure to COVID-19; Z88.5 Allergy status to narcotic agent; Z91.030 Bee allergy status
CPT/HCPCS: 99153; G0500; J2250; J3010; J7121; U0003

== ENCOUNTER 2021-01-26 01:57 | Emergency (ER) | payer OTHER ==
[~2021-01-26] VITALS: Ht 177.8 cm; Wt 76.2 kg
[~2021-01-26 01:57] MED LIST changes: +SEROQUEL100 MG PO
[2021-01-26] MEDS ORDERED: ONDANSETRON ODT8 MG PO (04:32)
[2021-01-26] MEDS ORDERED: OMEPRAZOLE20 MG PO (04:32)
== END 2021-01-26 04:55 | disposition home or self-care (01) ==
LOC: ED 01:57
DX: K30 Functional dyspepsia (principal); F17.200 Nicotine dependence, unspecified, uncomplicated; Z88.5 Allergy status to narcotic agent; Z91.030 Bee allergy status; Z79.899 Other long term (current) drug therapy
CPT/HCPCS: 74177; 80053; 81001; 83690; 85025; 99284-25; C9113; J1170; J2405; J7030; Q9967

== ENCOUNTER 2022-04-22 16:35 | Emergency (ER) | payer OTHER ==
[~2022-04-22] VITALS: Ht 177.8 cm; Wt 76.2 kg
[~2022-04-22 16:35] MED LIST changes: +ONDANSETRON ODT8 MG PO; +SEROQUEL50 MG PO
--- OUTSIDE RECORDS SUMMARY | 2022-04-22 16:42 | XMS ---
PreManage Notification: HILLARY CASTRO Security Director Of Sleep Events No recent Security Events currently on file CRITERIA MET - [facility] - 2 Visits in 30 Days CARE PROVIDERS HEMA ASH[facility] 05/30/2020-Current PHONE: [phone] [place] has no Care Guidelines for this patient. Jorden VISIT COUNT (12 MO.) 2 [facility] TOTAL 2 NOTE: Visits indicate total known visits. ED/UCC VISIT TRACKING (12 MO.) 04/22/2022 16:36 [facility] [place] TYPE: Emergency COMPLAINT: - MEDICAL CLEARANCE 04/21/2022 18:28 [facility] [place] TYPE: Emergency COMPLAINT: - MEDICAL CLEARNACE INPATIENT VISIT TRACKING (12 MO.) No inpatient visits to display in this time frame [email or web address]
[2022-04-23] MEDS ORDERED: SEROQUEL100 MG PO (11:03)
== END 2022-04-23 11:14 | disposition home or self-care (01) ==
LOC: ED 16:35
DX: F29 Unspecified psychosis not due to a substance or known physiological condition (principal); F20.9 Schizophrenia, unspecified; F15.10 Other stimulant abuse, uncomplicated; F17.200 Nicotine dependence, unspecified, uncomplicated; Z88.5 Allergy status to narcotic agent; Z79.899 Other long term (current) drug therapy; Z91.030 Bee allergy status; Z20.822 Contact with and (suspected) exposure to COVID-19
CPT/HCPCS: 36415; 80053; 81003; 84443; 85025; 87502; 99285; A9270; C9803; G0480; U0003

== ENCOUNTER 2023-11-19 18:45 | Emergency (ER) | payer OTHER ==
[~2023-11-19] VITALS: Ht 177.8 cm; Wt 80.5 kg
[2023-11-19] MEDS ORDERED: HALOPERIDOL LACTATE 5 MG/ML VIAL IM ONE (19:15)
[2023-11-19] MEDS ORDERED: LORazepam 2 MG/ML VIAL IM ONE (19:15)
[2023-11-19] MEDS ORDERED: diphenhydrAMINE HCL 50 MG/ML VIAL IM ONE (19:15)
[2023-11-19 19:23] LABS: BASOPHILS 0.7 % (0-2); EOSINOPHILS 2.6 % (0-6); HEMATOCRIT 39.3 % (35.0-50.0); HEMOGLOBIN 13.4 g/dL (12.0-18.0); LYMPHOCYTES 27.1 % (24-44); MCH 29.2 (27-36); MCV 85.8 fl (81-99); NEUTROPHILS 61.6 % (39-80); PLATELET COUNT 315 K/uL (140-440); RBC 4.58 M/ul (4.3-5.7)
[2023-11-19 19:50] LABS: ACETAMINOPHEN 0 ug/mL (10-30); ALBUMIN 3.4 g/dL (3.4-5.0); ALBUMIN/GLOBULIN RATIO 0.92 (1.1-2.4); ALCOHOL, MEDICAL <3 ng/dL (<3); ALKALINE PHOSPHATASE 90 U/L (46-116); ALT (SGPT) 18 U/L (14-59); ANION GAP 13.6 (7-21); AST (SGOT) 15 U/L (15-37); BILIRUBIN, TOTAL 0.3 ng/dL (0.2-1.0); CALCIUM 8.1 mg/dL (8.5-10.1); CARBON DIOXIDE 25 mmol/L (21-32); CHLORIDE 105 mmol/L (98-107); CREATININE, SERUM 1.15 mg/dL (0.70-1.30); GLOMERULAR FILTRATION RATE,EST 79 mL/min (>60); POTASSIUM 3.6 mmol/L (3.5-5.1); PROTEIN, TOTAL 7.1 g/dL (6.4-8.2); SALICYLATE 4.9 mg/dL (2.8-20.0); UREA NITROGEN 13 mg/dL (7-18)
[2023-11-19 20:03] LABS: BILIRUBIN, URINE NEGATIVE (negative); BLOOD/HGB, URINE NEGATIVE (Negative); KETONE, URINE NEGATIVE (Negative); LEUK ESTERASE, URINE NEGATIVE (negative); NITRITE, URINE NEGATIVE (negative)
[2023-11-19 20:19] LABS: AMPHETAMINES, URINE POSITIVE (NEGATIVE); BARBITURATES, URINE NEGATIVE (NEGATIVE); BENZODIAZEPINE, URINE NEGATIVE (NEGATIVE); BUPRENORPHINE, URINE NEGATIVE (NEGATIVE); CANNABINOID, URINE POSITIVE (NEGATIVE); COCAINE, URINE NEGATIVE (NEGATIVE); ECSTASY, URINE POSITIVE (NEGATIVE); FENTANYL, URINE NEGATIVE (NEGATIVE); METHADONE, URINE NEGATIVE (NEGATIVE); OPIATES, URINE NEGATIVE (NEGATIVE); OXYCODONE, URINE NEGATIVE (NEGATIVE); PHENCYCLIDINE, URINE NEGATIVE (NEGATIVE)
[2023-11-19] MEDS ORDERED: MAGNESIUM OXIDE 400 MG TABLET PO ONE (21:30)
[2023-11-20 11:39] VITALS: BP 96/53
--- NOTE | 2023-11-20 21:16 | EKG ---
[facility] [address] [facility] [place] [address] Signed Normal sinus rhythm Rightward axis Borderline ECG No previous ECGs available Confirmed by Heraclio Espinosa MD () on 11/20/2023 9:16:45 PM Electronically Signed By: HERACLIO ESPINOSA MD 11/20/232115 PATIENT NAME: HILLARY CASTRO Electrocardiogram DATE OF : 77 PHYSICIAN: HERACLIO ESPINOSA MD REPORT #: [id number] REPORT IS CONFIDENTIAL AND NOT TO BE RELEASED WITHOUT AUTHORIZATION
--- NOTE | 2023-11-20 21:18 | EKG ---
[facility] [address] [facility] [place] [address] Signed Normal sinus rhythm Rightward axis Borderline ECG When compared with ECG of 19-NOV-2023 19:19, No significant change was found Confirmed by Heraclio Espinosa MD () on 11/20/2023 9:18:39 PM Electronically Signed By: HERACLIO ESPINOSA MD 11/20/238 PATIENT NAME: HILLARY CASTRO Electrocardiogram DATE OF : 77 PHYSICIAN: HERACLIO ESPINOSA MD REPORT #: [id number] REPORT IS CONFIDENTIAL AND NOT TO BE RELEASED WITHOUT AUTHORIZATION
== END 2023-11-20 11:38 | disposition home or self-care (01) ==
LOC: ED 18:45
PROVIDERS: Family Medicine
DX: R45.851 Suicidal ideations (principal); F43.10 Post-traumatic stress disorder, unspecified; F19.90 Other psychoactive substance use, unspecified, uncomplicated; F17.200 Nicotine dependence, unspecified, uncomplicated; Z88.5 Allergy status to narcotic agent; Z91.030 Bee allergy status; Z79.899 Other long term (current) drug therapy
CPT/HCPCS: 36415; 80053; 80307; 81003; 83735; 84443; 85025; 93005; 93010; 99285; G0480

== ENCOUNTER 2024-07-16 16:24 | Emergency (ER) | payer OTHER ==
[~2024-07-16] VITALS: Ht 177.8 cm; Wt 80.9 kg
[2024-07-16 20:00] VITALS: BP 101/70
[2024-07-16] MEDS ORDERED: TRIAMCINOLONE ACET 40 MG/ML VIAL 1 ML IAARTIC ONE (20:00)
== END 2024-07-16 20:02 | disposition other institution, planned readmission (95) ==
LOC: ED 16:24
DX: M70.21 Olecranon bursitis, right elbow (principal); F43.10 Post-traumatic stress disorder, unspecified; G47.00 Insomnia, unspecified; F17.200 Nicotine dependence, unspecified, uncomplicated; Z79.899 Other long term (current) drug therapy; Z88.5 Allergy status to narcotic agent; Z91.030 Bee allergy status
CPT/HCPCS: 99283